=== PATIENT | female | born 2000 | race American Indian/Alaskan Native ===

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

== ENCOUNTER 2021-02-05 15:07 | Outpatient (REF) | payer OTHER, SELFPAY ==
[2021-02-06 10:12] LABS: CT PCR NOT DETECTED (Not Detect.); NG PCR NOT DETECTED (Not Detect.)
[2021-02-06 12:25] LABS: BV Int Neg Control Negative (Negative); BV Int Pos Control Positive (Positive)
== END 2021-02-05 15:08 | disposition home or self-care (01) ==
LOC: HO.LAB 15:07
PROVIDERS: PCP Physician Assistant; Visit Provider Advanced Practice Midwife
DX: N94.6 Dysmenorrhea, unspecified (principal); N92.0 Excessive and frequent menstruation with regular cycle; R10.2 Pelvic and perineal pain; R53.83 Other fatigue; F17.200 Nicotine dependence, unspecified, uncomplicated; J30.89 Other allergic rhinitis; Z91.09 Other allergy status, other than to drugs and biological substances
CPT/HCPCS: 81025; 87480; 87491; 87510; 87591; 87660; 99202

== ENCOUNTER → 2021-02-06 10:59 | Outpatient (BNVA) | payer OTHER, SELFPAY | PROVIDERS: PCP Physician Assistant; Visit Provider Advanced Practice Midwife | DX: Z30.42 Encounter for surveillance of injectable contraceptive (principal) | CPT/HCPCS: 96372; 99211; J1050 ==

== ENCOUNTER → 2021-05-05 10:54 | Outpatient (BNVA) | payer OTHER, SELFPAY | PROVIDERS: PCP Physician Assistant; Visit Provider Advanced Practice Midwife | DX: Z30.42 Encounter for surveillance of injectable contraceptive (principal) | CPT/HCPCS: 96372; 99211 ==

== ENCOUNTER 2021-05-09 14:18 | Outpatient (REF) | payer OTHER, SELFPAY ==
[2021-05-09 15:03] LABS: MANUAL DIFF FLAG NO
[2021-05-09 15:07] LABS: Basophils Percent Auto 0.6 % (0-2); Eosinophils Percent Auto 0.9 % (0-4); Hematocrit 41.4 % (37-47); Hemoglobin 13.8 g/dl (12.0-16.0); Imm Gran Abs Auto 0.01 X10*3/uL (0.00-0.03); Imm Gran Pct Auto 0.2 % (0.0-0.4); Lymphocytes Absolute Auto 1.4 X10*3/uL (1.2-4.9); Lymphocytes Percent Auto 30.9 % (20-40); Mean Corpuscular HGB Conc 33.3 g/dl (31.0-35.0); Mean Corpuscular Hemoglobin 30.9 pg (27.0-33.0); Mean Corpuscular Volume 92.6 fL (80-98); Mean Platelet Volume 10.5 fL (9.4-12.3); Monocytes Absolute Auto 0.4 X10*3/uL (0.1-1.2); Monocytes Percent Auto 8.9 % (2-11); Neutrophils Absolute Auto 2.7 X10*3/uL (2.0-8.3); Neutrophils Percent Auto 58.5 % (45-73); Platelet Count 181 X10*3/uL (160-400); Red Blood Count 4.47 X10*6/uL (4.20-5.50); Red Cell Distribution Width 12.2 % (11.0-16.0); White Blood Count 4.6 X10*3/uL (4.8-10.8)
[2021-05-09 15:34] LABS: Anion Gap 14 (12-20); Calcium 9.3 mg/dL (8.4-10.2); Carbon Dioxide 22 mmol/L (22-29); Chloride 108 mmol/L (96-108); Potassium 4.2 mmol/L (3.3-5.1); Sodium 140 mmol/L (135-145)
[2021-05-09 15:38] LABS: Blood Urea Nitrogen 11 mg/dL (9-16); C Reactive Protein < 0.02 mg/dL (< or = 0.50); Estimated Glomerular Filt Rate > 60; Glucose Random 73 mg/dL (60-115)
[2021-05-09 15:40] LABS: Thyroid Stimulating Hormone 0.88 uIU/mL (0.32-4.0)
[2021-05-09 16:12] LABS: Erythrocyte Sedimentation Rate 2 MM/HR (0-20)
== END 2021-05-09 14:19 | disposition home or self-care (01) ==
LOC: HO.LAB 14:18
PROVIDERS: PCP Physician Assistant; Visit Provider Physician Assistant
DX: R53.83 Other fatigue (principal)
CPT/HCPCS: 36415; 80048; 84443; 85025; 85652; 86140

== ENCOUNTER 2021-09-15 14:48 | Outpatient (REF) | payer OTHER, SELFPAY ==
--- NOTE | ~2021-09-15 | MR_ITS ---
EXAMINATION: MR KNEE WITHOUT CONTRAST, RIGHT CLINICAL INFORMATION: Rupture of ACL COMPARISON: MRI of the right knee April 2019, x-ray right knee December 2018, MRI of the right knee October 2018 TECHNIQUE: MRI of the knee without contrast was performed using routine sequences on a high-field scanner. FINDINGS: MENISCI: Medial Meniscus: Intact Lateral Meniscus: Intact LIGAMENTS: ACL: Postop changes related to ACL reconstruction. There is absence of the intra-articular portion of the reconstructed ligament indicative of a tear which appears chronic. It appears this tear has progressed compared with the prior MRI in 2019. PCL: Intact. Collateral: Intact EXTENSOR MECHANISM: Intact ARTICULAR CARTILAGE/BONE: Patellofemoral Compartment: Normal Medial Compartment: There is subchondral marrow edema along the posterior rim of the medial plateau compatible with bone contusion. Lateral Compartment: There is subchondral bone marrow edema along the posterior rim of the lateral plateau compatible with bone contusion. 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 This tear has progressed compared to the prior examination in 2019 where there may have been some fibers still intact. Bone contusions of the medial and lateral tibial plateau.
== END 2021-09-15 14:49 | disposition home or self-care (01) ==
LOC: HO.MRI 14:48
PROVIDERS: PCP Physician Assistant; Visit Provider Family Medicine Sports Medicine
DX: S83.512D Sprain of anterior cruciate ligament of left knee, subsequent encounter (principal)
CPT/HCPCS: 73721

== ENCOUNTER 2022-08-02 23:43 | Emergency (ER) | payer OTHER, SELFPAY ==
--- NOTE | ~2022-08-02 | XR_ITS ---
EXAMINATION: XR HAND, RIGHT CLINICAL INFORMATION: Right hand pain COMPARISON: None TECHNIQUE: PA, lateral, and oblique views of the right hand. FINDINGS: No fracture or dislocation. Alignment maintained. Joint spaces are maintained. The soft tissues appear unremarkable. XR/XR hand RT 2V IMPRESSION: Normal right hand.
[2022-08-03 00:26] VITALS: BP 109/61; PULSE 65; RESP 16; TEMP 36.6; O2SAT 100; BMI 18.6
== END 2022-08-03 04:58 | disposition left against medical advice (07) ==
PROVIDERS: Emergency Provider Emergency Medicine; PCP Physician Assistant
DX: S69.91XA Unspecified injury of right wrist, hand and finger(s), initial encounter (principal); W22.09XA Striking against other stationary object, initial encounter; Y93.89 Activity, other specified; Y92.9 Unspecified place or not applicable; Y99.9 Unspecified external cause status
CPT/HCPCS: 73120; 99281; 99283

== ENCOUNTER 2022-09-24 09:52 | Outpatient (REF) | payer OTHER, SELFPAY ==
[2022-09-24 10:33] LABS: Hematocrit 38.7 % (37.0-47.0); Hemoglobin 13.2 g/dl (12.0-16.0); Mean Corpuscular HGB Conc 34.1 g/dl (31.0-35.0); Mean Corpuscular Volume 93.9 fL (80.0-98.0); Mean Platelet Volume 10.5 fL (9.4-12.3); Platelet Count 187 X10*3/uL (160-400); Red Blood Count 4.12 X10*6/uL (4.20-5.50); Red Cell Distribution Width 12.1 % (11.0-16.0); White Blood Count 5.1 X10*3/uL (4.8-10.8)
[2022-09-24 11:31] LABS: Alanine Aminotransferase 13 U/L (0-31); Albumin Level 4.2 g/dL (3.5-5.0); Alkaline Phosphatase 78 U/L (39-117); Anion Gap 11 (12-20); Aspartate Amino Transferase 15 U/L (5-31); Bilirubin Total 0.5 mg/dL (0.0-1.0); Blood Urea Nitrogen 12 mg/dL (9-16); Calcium 8.9 mg/dL (8.4-10.2); Carbon Dioxide 25 mmol/L (22-29); Chloride 106 mmol/L (96-108); Estimated Glomerular Filt Rate > 60; Glucose Fasting 86 mg/dL (60-99); Sodium 138 mmol/L (135-145); TSH reflex Free T4 1.62 uIU/mL (0.32-4.0); Total Protein 6.8 g/dL (6.5-8.0)
== END 2022-09-24 09:53 | disposition home or self-care (01) ==
LOC: HO.LAB 09:52
PROVIDERS: PCP Physician Assistant; Visit Provider Physician Assistant
DX: Z13.29 Encounter for screening for other suspected endocrine disorder (principal); N93.9 Abnormal uterine and vaginal bleeding, unspecified
CPT/HCPCS: 36415; 80053; 84443; 85027; 99212

== ENCOUNTER 2022-09-24 11:17 | Outpatient (REF) | payer OTHER, SELFPAY ==
[2022-09-24 15:04] LABS: CT PCR NOT DETECTED (Not Detect.)
[2022-09-24 15:05] LABS: NG PCR NOT DETECTED (Not Detect.)
[2022-09-25 12:37] LABS: BV Int Neg Control Negative (Negative); BV Int Pos Control Positive (Positive)
== END 2022-09-24 11:18 | disposition home or self-care (01) ==
LOC: HO.LNP 11:17
PROVIDERS: Visit Provider Advanced Practice Midwife
DX: Z11.3 Encounter for screening for infections with a predominantly sexual mode of transmission (principal); N92.0 Excessive and frequent menstruation with regular cycle
CPT/HCPCS: 87480; 87491; 87510; 87591; 87660

== ENCOUNTER → 2022-10-07 12:36 | Outpatient (BNVA) | payer OTHER, SELFPAY | PROVIDERS: PCP Physician Assistant; Visit Provider Dietitian, Registered | DX: R63.6 Underweight (principal); Z68.20 Body mass index [BMI] 20.0-20.9, adult; Z71.3 Dietary counseling and surveillance | CPT/HCPCS: 97802 ==

== ENCOUNTER 2022-10-09 14:13 | Outpatient (REF) | payer OTHER, SELFPAY ==
--- NOTE | ~2022-10-09 | US_ITS ---
EXAMINATION: US PELVIS CLINICAL INFORMATION: Abnormal uterine bleeding and vaginal bleeding. Last menstrual period 09/26/2022. COMPARISON: None TECHNIQUE: Ultrasound of the pelvis is performed using both transabdominal and transvaginal transducers along with Doppler. Transvaginal imaging is performed due to inadequate visualization transabdominally. FINDINGS: The uterus measures 8.2 x 3.6 x 4.8 cm and is anteverted. No discrete fibroid identified. Endometrial thickness is 0.5 cm. No significant free fluid. Left ovary measures 3.0 x 1.6 x 2.0 cm, volume 4.9 mL. Multiple left ovarian follicles are identified. Right ovary measures 6.3 x 3.9 x 6.0 cm, volume 76.7 mL. Right ovarian 4.9 x 3.2 x 4.4 cm cyst appears simple. US/US pelvic and transvaginal IMPRESSION: 1. Right ovarian 4.9 cm cyst is probably benign. Recommend follow-up ultrasound in 3-6 months. 2. Multiple left ovarian small follicles. 3. Endometrial thickness is 0.5 cm. 4. No discrete fibroids. 5. No significant free fluid.
== END 2022-10-09 14:14 | disposition home or self-care (01) ==
LOC: HO.HMGCX 14:13
PROVIDERS: PCP Physician Assistant; Visit Provider Advanced Practice Midwife
DX: N93.9 Abnormal uterine and vaginal bleeding, unspecified (principal)
CPT/HCPCS: 76830; 76856

== ENCOUNTER → 2022-10-15 08:01 | Outpatient (BNVA) | payer OTHER, SELFPAY | PROVIDERS: PCP Physician Assistant; Visit Provider Advanced Practice Midwife | DX: Z71.2 Person consulting for explanation of examination or test findings (principal); N92.6 Irregular menstruation, unspecified; N92.0 Excessive and frequent menstruation with regular cycle; R10.2 Pelvic and perineal pain | CPT/HCPCS: 99212 ==

== ENCOUNTER → 2022-10-16 11:09 | Outpatient (BNVA) | payer OTHER, SELFPAY | PROVIDERS: PCP Physician Assistant; Visit Provider Advanced Practice Midwife | DX: Z30.42 Encounter for surveillance of injectable contraceptive (principal) | CPT/HCPCS: 96372; 99211 ==

== ENCOUNTER 2022-10-31 17:38 | Emergency (ER) | payer OTHER, SELFPAY ==
--- NOTE | ~2022-10-31 | CT_ITS ---
EXAMINATION: CT ABDOMEN AND PELVIS WITHOUT CONTRAST CLINICAL INFORMATION: Abdominal pain COMPARISON: Pelvic ultrasound 10/09/2022 TECHNIQUE: Multidetector volumetric imaging was performed from the superior aspect of the liver through the pubic symphysis. Sagittal and coronal reformatted images were obtained on the technologist's workstation. This CT examination was performed using dose optimization techniques as appropriate, variously including the following: *Automated exposure control *Adjustment of mA and/or kV according to patient size (this includes techniques or standardized protocols for targeted exams where dose is matched to indication/reason for exam; i.e. extremities or head) *Use of iterative reconstruction technique DLP: 1942 mGy-cm FINDINGS: LUNG BASES: Unremarkable. ABDOMINAL AND PELVIC WALL: Unremarkable. LIVER AND BILIARY TREE: Unremarkable. GALLBLADDER: Unremarkable. PANCREAS: Unremarkable. SPLEEN: Unremarkable. ADRENAL GLANDS: Unremarkable. KIDNEYS AND URETERS: Unremarkable. GASTROINTESTINAL TRACT: Colonic diverticulosis without evidence of diverticulitis. The appendix is not definitively identified however there are no secondary findings to suggest appendicitis. VASCULAR: Unremarkable. LYMPH NODES/PERITONEUM: No lymphadenopathy. FREE FLUID: None. BLADDER: Unremarkable. PELVIC VISCERA: A 3.7 cm right ovarian cyst, better evaluated on recent pelvic ultrasound previously measuring 4.9 cm, decreased in size. OSSEOUS STRUCTURES: Unremarkable. CT/CT abdomen pelvis wo IV con IMPRESSION: No acute findings to explain symptoms of abdominal pain. A 3.7 cm simple appearing right ovarian cyst, better evaluated on recent pelvic ultrasound is slightly decreased in size.
[2022-10-31 17:45] VITALS: BP 108/80; PULSE 81; RESP 20; TEMP 36.9; O2SAT 100; BMI 17.9
--- NOTE | 2022-10-31 17:45 | ED_ITS ---
HPI - General Adult General Chief complaint: Abdominal Pain Stated complaint: Ovary cyst pain Time Seen by Provider: 10/31/22 19:18 Source: patient and family (mother) Mode of arrival: ambulatory Limitations: no limitations History of Present Illness HPI narrative: Patient is a 21 year old assigned female at with a history of ovarian cysts presenting to the emergency department today with abdominal pain. Patient states that over the last few hours she has had worsening abdominal pain. Patient denies any dizziness, lightheadedness, nausea, vomiting, fever, chills, blurry vision, double vision, loss of vision, chest pain, difficulty breathing, shortness of breath, back pain, night sweats, pain with urination, increased urinary frequency, increased urinary urgency, blood in her urine or stool, syncope or a near syncopal episode, recent trauma or falls, bowel incontinence, bladder incontinence, bowel retention, bladder retention, or any other complaints at this time. Onset (ago): hour(s) Location: abdomen Radiation: non-radiation Severity: mild Severity scale (1-10): 3 Quality: aching and dull Pain Consistency: constant Relieving factors: none Exacerbating factors: none Associated symptoms: denies other symptoms Treatments prior to arrival: none Related Data Home Medications Medication Instructions Recorded Confirmed cetirizine 10 mg tablet 10 mg PO DAILY 02/05/21 09/23/22 fluticasone propionate 50 1 spray intranasal DAILY 02/05/21 09/23/22 mcg/actuation nasal spray,suspension budesonide 180 mcg/actuation 2 inh inhalation BID 09/17/21 09/23/22 breath activated powder inhaler (Pulmicort Flexhaler) Previous Rx's Medication Instructions Recorded albuterol sulfate 90 mcg/actuation 2 puff inhalation Q4-6H PRN 02/10/21 aerosol inhaler shortness of breath or wheezing #8.5 grams hydroxyzine HCl 10 mg tablet 10 mg PO BEDTIME 30 days #30 tabs 08/20/22 sertraline 25 mg tablet (Zoloft) 25 mg PO DAILY #30 tabs 10/07/22 medroxyprogesterone 150 mg/mL 150 mg IM [id number] #1 mL 10/16/22 intramuscular suspension (Depo-Provera) Allergies Allergy/AdvReac Type Severity Reaction Status Date / Time DUST Allergy Mild Sneezing Uncoded 10/15/22 08:10 seasonal Allergy Unknown Unknown Uncoded 10/15/22 08:10 Review of Systems Constitutional: Constitutional: Reports no additional constitutional complaints, Denies chills, Denies fever(s) and Denies night sweats Eyes: Eyes: Reports no additional eye complaints, Denies blurry vision, Denies change in vision, Denies diplopia, Denies eye discharge, Denies loss of vision and Denies eye pain ENT: Denies dizziness Cardiovascular: Cardiovascular: Reports no additional cardiovascular complaints, Denies chest pain, Denies lightheadedness, Denies Loss of Consciousness and Denies dyspnea Respiratory: Respiratory: Reports no additional respiratory complaints and Denies dyspnea Gastrointestinal: Gastrointestinal: Reports no additional gastrointestinal complaints, Reports abdominal pain, Denies melena, Denies hematochezia, Denies change in bowel habits and Denies change in stool character Genitourinary: Genitourinary: Denies hematuria, Denies urinary frequency, Denies dysuria, Denies urinary incontinence, Denies urinary hesitancy and Denies urinary urgency Musculoskeletal: Musculoskeletal: Reports no additional musculoskeletal complaints, Denies numbness and Denies tingling Neurologic: Denies dizziness, Denies loss of vision, Denies numbness and Denies tingling Psychiatric: Psychiatric: Reports no additional psychiatric complaints Endocrine: Endocrine: Reports no additional endocrine complaints Hematologic/Lymphatic: Hematologic/Lymphatic: Reports no additional hematologic/lymphatic complaints Allergic/Immunologic: Allergic/Immunologic: Reports no additional allergic/immunologic complaints PMFSH Past Medical History Attestation statement: The following information was validated with the patient. (all information validated by the patient's mother) Source: old records reviewed, obtained from family (patient's mother) and nursing notes reviewed Medical History Right ACL tear Family History Family History Family/Other Breast cancer Family/Other Breast cancer Social History Social History Housing: House Alcohol intake: current Alcohol intake frequency: holidays/special occasions only Tobacco use type: Cigarette and Smokeless Tobacco e-Cigarette/Vaping Use: Never Used Second Hand Smoke Exposure: No Substance Use Type: Marijuana Advance Directives: No Advance Directives Information Provided: No Current occupational status: employed and student 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 Sexual orientation: Lesbian/[place]/Homosexual Cognitive needs: No Hearing needs: No Vision needs: No Physical Exam ED Vital Signs: Vital Signs - 24 hr 10/31/22 17:45 Temperature 98.5 F Pulse Rate 81 Respiratory Rate 20 Blood Pressure 108/80 Pulse Oximetry 100 Oxygen Delivery Method Room Air BMI result Body Mass Index 17.9 Const General: cooperative, no acute distress, alert and awake Nutritional Appearance: well nourished Orientation/consciousness: patient oriented x3 Limitations: no limitations HENMT Head: Yes normal to inspection and Yes atraumatic Ears: hearing grossly normal bilaterally and external ears normal General nose exam: Normal external nose present, no nasal discharge noted and no epistaxis Face and sinus: Yes normal facial exam, No abrasion and No laceration Mouth: Normal oral and palatal mucosa present, no drooling and no muffled voice Eyes General: appearance normal, both eyes and all related structures Periorbital: periorbital findings normal Eyelids: Yes eyelids normal Conjunctivae: conjunctivae normal Pupils: Equal, round and reactive pupils present EOM: EOMs intact bilaterally Neck Neck: Yes normal visual inspection, Yes full ROM and Yes no lymphadenopathy Chest Chest palpation & inspection: normal inspection of the chest Resp Effort & Inspection: normal respiratory effort and able to speak in complete sentences GI Inspection: Yes normal to inspection Neuro General: patient oriented x3 and moves all extremities Cranial nerves: Yes Equal, round and reactive pupils present Cognition (Neuro): normal cognition Motor exam (neuro): 5/5 motor strength present throughout Sensory Exam: Normal double simultaneous stimulation for sensation Coordination: [id number] test normal Extrem General: Yes normal to inspection, Yes full ROM and Yes capillary refill normal Psych Appearance: grossly normal Mental Status: mental status grossly normal Affect: normal affect Attitude: cooperative Thought process: Normal thought process present Thought content: Normal thought content present Insight: Good insight present (Psych) Course Course Course Narrative: RME performed by Sylvia Mcgowan PA-C. Patient is a 21 year old female presenting to the emergency department with right sided abdominal pain. Patient states that she has a history of ovarian cysts and this feels worse than that. Labs and UA ordered. Medications Administered Discontinued Medications Generic Name Dose Route Start Last Admin Trade Name Freq PRN Reason Stop Dose Admin Ketorolac Tromethamine 15 mg 10/31/22 19:53 10/31/22 20:16 Ketorolac Tromethamine 15 Mg/Ml Vial IM 10/31/22 19:54 15 mg ONCE ONE Administration Medical Decision Making Medical Decision Making [facility] Narrative: Patient is a 21 year old assigned female at with a history of ovarian cysts presenting to the emergency department today with abdominal pain. Patient' s physical exam was unremarkable. Patient's blood work was unremarkable. Patient's urine showed no acute process. Patient's abdominal CT showed no acute process. I explained my physical exam findings as well as all test results to the patient and the patient's mother. I answered all questions asked by the patient and the patient's mother. Patient received IM Toradol which she stated helped her pain significantly. I stressed the importance of the patient taking her medication as prescribed. I stressed the importance of the patient following up with her primary care provider. I stressed the importance of the patient returning to the emergency department immediately if her symptoms were to worsen or if she were to develop any dizziness, shortness of breath, difficulty breathing, chest pain, blurry vision, loss of vision, nausea, vomiting, abdominal pain, fever, chills, back pain, or any other complaints. Patient and the patient's mother verbalized agreement and understanding with this treatment plan and discharge. Differential Diagnosis Differential Diagnoses: The differential diagnosis associated with the presentation includes abdominal pain, constipation Lab Data [facility] Lab Attestation statement: I reviewed the patient's lab results. 10/31/22 18:39 10/31/22 18:39 Labs: Lab Results 10/31/22 10/31/22 10/31/22 Range/Units 18:39 18:39 18:39 WBC 5.8 (4.8-10.8) X10*3/uL RBC 4.32 (4.20-5.50) X10*6/uL Hgb 13.6 (12.0-16.0) g/dl Hct 39.7 (37.0-47.0) % MCV 91.9 (80.0-98.0) fL MCH 31.5 (27.0-33.0) pg MCHC 34.3 (31.0-35.0) g/dl RDW 12.3 (11.0-16.0) % Plt Count 186 (160-400) X10*3/uL MPV 9.8 (9.4-12.3) fL Immature Gran % (Auto) 0.3 (0.0-0.4) % Neut % (Auto) 62.9 (45-73) % Lymph % (Auto) 29.3 (20-40) % Stephenson % (Auto) 7.0 (2-11) % Eos % (Auto) 0.2 (0-4) % Baso % (Auto) 0.3 (0-2) % Lymph # (Auto) 1.7 (1.2-4.9) X10*3/uL Stephenson # (Auto) 0.4 (0.1-1.2) X10*3/uL Eos # (Auto) 0.0 (0.0-0.4) X10*3/uL Baso # (Auto) 0.0 (0.0-0.2) X10*3/uL Abs Immat Gran (auto) 0.02 (0.00-0.03) X10*3/uL Absolute Neuts (auto) 3.7 (2.0-8.3) x10*3/uL Absolute Nucleated RBC 0.000 (0.0-0.012) X10*3/uL Nucleated RBC % (auto) 0.0 (0.0-0.2) /100WBC ESR 2 (0-20) MM/HR Sodium 140 (135-145) mmol/L Potassium 3.6 (3.3-5.1) mmol/L Chloride 108 (96-108) mmol/L Carbon Dioxide 23 (22-29) mmol/L Anion Gap 13 (12-20) BUN 9 (9-16) mg/dL Creatinine 0.83 (0.5-1.4) mg/dL Estim Creat Clear Calc 96.7 Estimated GFR > 60 Random Glucose 95 (60-115) mg/dL Calcium 9.2 (8.4-10.2) mg/dL Magnesium 2.2 (1.6-2.6) mg/dL Total Bilirubin 0.7 (0.0-1.0) mg/dL AST 31 (5-31) U/L ALT 19 (0-31) U/L Alkaline Phosphatase 71 (39-117) U/L C-Reactive Protein < 0.04 (< or = 0.50) mg/dL Total Protein 7.2 (6.5-8.0) g/dL Albumin 4.4 (3.5-5.0) g/dL Beta HCG, Quant < 2 mIU/mL Urine Color Urine Appearance Urine pH (5.0-9.0) Ur Specific Tulia (1.005-1.025) Urine Protein (Neg-Trace) mg/dL Urine Glucose (UA) (Negative) mg/dL Urine Ketones (Negative) mg/dL Urine Blood (Negative) Urine Nitrite (Negative) Ur Leukocyte Esterase (Negative) Urine RBC (0-2) /HPF Urine WBC (0-5) /HPF Ur Squamous Epith Cells (0-2) /HPF Urine Bacteria (None Seen) Hyaline Casts (0-2) /LPF COVID-19 (INDIGO) (Negative) COVID-19 Clin Com 10/31/22 10/31/22 Range/Units 18:39 18:39 WBC (4.8-10.8) X10*3/uL RBC (4.20-5.50) X10*6/uL Hgb (12.0-16.0) g/dl Hct (37.0-47.0) % MCV (80.0-98.0) fL MCH (27.0-33.0) pg MCHC (31.0-35.0) g/dl RDW (11.0-16.0) % Plt Count (160-400) X10*3/uL MPV (9.4-12.3) fL Immature Gran % (Auto) (0.0-0.4) % Neut % (Auto) (45-73) % Lymph % (Auto) (20-40) % Stephenson % (Auto) (2-11) % Eos % (Auto) (0-4) % Baso % (Auto) (0-2) % Lymph # (Auto) (1.2-4.9) X10*3/uL Stephenson # (Auto) (0.1-1.2) X10*3/uL Eos # (Auto) (0.0-0.4) X10*3/uL Baso # (Auto) (0.0-0.2) X10*3/uL Abs Immat Gran (auto) (0.00-0.03) X10*3/uL Absolute Neuts (auto) (2.0-8.3) x10*3/uL Absolute Nucleated RBC (0.0-0.012) X10*3/uL Nucleated RBC % (auto) (0.0-0.2) /100WBC ESR (0-20) MM/HR Sodium (135-145) mmol/L Potassium (3.3-5.1) mmol/L Chloride (96-108) mmol/L Carbon Dioxide (22-29) mmol/L Anion Gap (12-20) BUN (9-16) mg/dL Creatinine (0.5-1.4) mg/dL Estim Creat Clear Calc Estimated GFR Random Glucose (60-115) mg/dL Calcium (8.4-10.2) mg/dL Magnesium (1.6-2.6) mg/dL Total Bilirubin (0.0-1.0) mg/dL AST (5-31) U/L ALT (0-31) U/L Alkaline Phosphatase (39-117) U/L C-Reactive Protein (< or = 0.50) mg/dL Total Protein (6.5-8.0) g/dL Albumin (3.5-5.0) g/dL Beta HCG, Quant mIU/mL Urine Color Yellow Urine Appearance Cloudy Urine pH 7.5 (5.0-9.0) Ur Specific [place] 1.025 (1.005-1.025) Urine Protein 30 (1+) H (Neg-Trace) mg/dL Urine Glucose (UA) Negative (Negative) mg/dL Urine Ketones Trace (Negative) mg/dL Urine Blood Negative (Negative) Urine Nitrite Negative (Negative) Ur Leukocyte Esterase Negative (Negative) Urine RBC 0-2 (0-2) /HPF Urine WBC 0-5 (0-5) /HPF Ur Squamous Epith Cells 0-2 (0-2) /HPF Urine Bacteria None Seen (None Seen) Hyaline Casts 0-2 (0-2) /LPF COVID-19 (INDIGO) Negative (Negative) COVID-19 Clin Com See Note Radiology Impression Radiologist Impression: My interpretation is in agreement with the radiologist's impression of this imaging study. EXAMINATION: CT ABDOMEN AND PELVIS WITHOUT CONTRAST? CLINICAL INFORMATION: Abdominal pain? COMPARISON: Pelvic ultrasound 10/09/2022? TECHNIQUE: Multidetector volumetric imaging was performed from the superior aspect of the liver through the pubic symphysis. Sagittal and coronal reformatted images were obtained on the technologist's workstation.? This CT examination was performed using dose optimization techniques as appropriate, variously including the following: *Automated exposure control *Adjustment of mA and/or kV according to patient size (this includes techniques or standardized protocols for targeted exams where dose is matched to indication/reason for exam; i.e. extremities or head) *Use of iterative reconstruction technique DLP: 1942 mGy-cm FINDINGS: LUNG BASES: Unremarkable.? ABDOMINAL AND PELVIC WALL:? Unremarkable.? LIVER AND BILIARY TREE: Unremarkable.? GALLBLADDER: Unremarkable.? PANCREAS: Unremarkable.? SPLEEN: Unremarkable.? ADRENAL GLANDS: Unremarkable.? KIDNEYS AND URETERS: Unremarkable.? GASTROINTESTINAL TRACT: Colonic diverticulosis without evidence of diverticulitis.? The appendix is not definitively identified however there are no secondary findings to suggest appendicitis. VASCULAR: Unremarkable. LYMPH NODES/PERITONEUM: No lymphadenopathy. FREE FLUID: None. BLADDER: Unremarkable.? PELVIC VISCERA: A 3.7 cm right ovarian cyst, better evaluated on recent pelvic ultrasound previously measuring 4.9 cm, decreased in size. OSSEOUS STRUCTURES: Unremarkable.? CT/CT abdomen pelvis wo IV con IMPRESSION: ? No acute findings to explain symptoms of abdominal pain. ? A 3.7 cm simple appearing right ovarian cyst, better evaluated on recent pelvic ultrasound is slightly decreased in size. Dictated By: Breanne Bosch MD Signed By: Electronically signed by Breanne Bosch MD 10/31/222034 Independent Historian Clinical information obtained from an independent historian. History obtained from or confirmed by: Parent (mother) Discharge Plan Discharge Clinical Impression: Constipation Patient Disposition: Home, Self-Care Instructions: Constipation (ED) Additional Instructions: Follow up with your primary care provider. Return to the emergency department immediately if your symptoms worsen or if you develop any dizziness, shortness of breath, difficulty breathing, chest pain, blurry vision, loss of vision, nausea, vomiting, abdominal pain, fever, chills, back pain, or any other complaints. Prescriptions: No Action hydroxyzine HCl 10 mg tablet 10 mg PO BEDTIME 30 Days Qty: 30 1RF sertraline [Zoloft] 25 mg tablet 25 mg PO DAILY Qty: 30 3RF medroxyprogesterone [Depo-Provera] 150 mg/mL suspension 150 mg IM [id number] Qty: 1 4RF albuterol sulfate 90 mcg/actuation HFA aerosol inhaler 2 puff inhalation Q4-6H PRN (Reason: shortness of breath or wheezing) Qty: 8.5 0RF Pulmicort Flexhaler 180 mcg/actuation aerosol powdr breath activated 2 inh inhalation BID fluticasone propionate 50 mcg/actuation spray,suspension 1 spray intranasal DAILY cetirizine 10 mg tablet 10 mg PO DAILY Referrals: Hever Hernandez PA-C [Primary Care Provider] - Print Language: Romansh
[2022-10-31 18:47] LABS: MANUAL DIFF FLAG NO
[2022-10-31 18:48] LABS: Appearance Urine Cloudy; Basophils Percent Auto 0.3 % (0-2); Color Urine Yellow; Eosinophils Percent Auto 0.2 % (0-4); Glucose Urine UA Negative (Negative); Hematocrit 39.7 % (37.0-47.0); Hemoglobin 13.6 g/dl (12.0-16.0); Imm Gran Abs Auto 0.02 X10*3/uL (0.00-0.03); Imm Gran Pct Auto 0.3 % (0.0-0.4); Leukocyte Esterase Urine Negative (Negative); Lymphocytes Absolute Auto 1.7 X10*3/uL (1.2-4.9); Lymphocytes Percent Auto 29.3 % (20-40); Mean Corpuscular HGB Conc 34.3 g/dl (31.0-35.0); Mean Corpuscular Hemoglobin 31.5 pg (27.0-33.0); Mean Corpuscular Volume 91.9 fL (80.0-98.0); Mean Platelet Volume 9.8 fL (9.4-12.3); Monocytes Absolute Auto 0.4 X10*3/uL (0.1-1.2); Neutrophils Absolute Auto 3.7 x10*3/uL (2.0-8.3); Neutrophils Percent Auto 62.9 % (45-73); Nitrite Urine Negative (Negative); PH 7.5 (5.0-9.0); Platelet Count 186 X10*3/uL (160-400); Red Blood Count 4.32 X10*6/uL (4.20-5.50); Red Cell Distribution Width 12.3 % (11.0-16.0); Specific Gravity - Urine 1.025 (1.005-1.025); UMIC TRIGGER UACC YES; Urine Blood Negative (Negative); Urine Ketones Trace mg/dL (Negative); Urine Protein 30 (1+) mg/dL (Neg-Trace); White Blood Count 5.8 X10*3/uL (4.8-10.8)
[2022-10-31 18:53] LABS: Bacteria Urine None Seen (None Seen); Hyaline Casts Urine 0-2 /LPF (0-2); RBC Urine 0-2 /HPF (0-2); Squamous Epithelial Cell Urine 0-2 /HPF (0-2); WBC Urine 0-5 /HPF (0-5)
[2022-10-31 19:01] LABS: COVID-19 Test Negative (Negative); IDNOW Serial# 6674DD1D
[2022-10-31 19:18] LABS: Alanine Aminotransferase 19 U/L (0-31); Albumin Level 4.4 g/dL (3.5-5.0); Alkaline Phosphatase 71 U/L (39-117); Anion Gap 13 (12-20); Aspartate Amino Transferase 31 U/L (5-31); Bilirubin Total 0.7 mg/dL (0.0-1.0); Blood Urea Nitrogen 9 mg/dL (9-16); C Reactive Protein < 0.04 mg/dL (< or = 0.50); Calcium 9.2 mg/dL (8.4-10.2); Carbon Dioxide 23 mmol/L (22-29); Chloride 108 mmol/L (96-108); Creatinine Clr Calc Pharmacy 96.7; Estimated Glomerular Filt Rate > 60; Glucose Random 95 mg/dL (60-115); HCG Quantitative < 2 mIU/mL; Magnesium 2.2 mg/dL (1.6-2.6); Potassium 3.6 mmol/L (3.3-5.1); Sodium 140 mmol/L (135-145); Total Protein 7.2 g/dL (6.5-8.0)
[2022-10-31 19:22] LABS: Erythrocyte Sedimentation Rate 2 MM/HR (0-20)
[2022-10-31] MEDS: Ketorolac Tromethamine 15 MG/ML VIAL IM (20:16)
== END 2022-10-31 21:06 | disposition home or self-care (01) ==
PROVIDERS: Physician Assistant Medical; Emergency Provider Internal Medicine; PCP Physician Assistant
DX: K59.00 Constipation, unspecified (principal); R10.9 Unspecified abdominal pain; Z20.822 Contact with and (suspected) exposure to COVID-19
CPT/HCPCS: 36415; 74176; 80053; 81001; 83735; 84702; 85025; 85652; 86140; 87635; 96372; 99283; 99284; J1885

== ENCOUNTER → 2022-12-29 12:20 | Outpatient (BNVA) | payer OTHER, SELFPAY | PROVIDERS: PCP Physician Assistant; Visit Provider Dietitian, Registered | DX: R63.6 Underweight (principal) | CPT/HCPCS: 97803 ==

== ENCOUNTER 2023-01-14 12:42 | Outpatient (REF) | payer OTHER, SELFPAY ==
--- NOTE | ~2023-01-14 | US_ITS ---
EXAMINATION: US PELVIS CLINICAL INFORMATION: Ovarian cyst. COMPARISON: Pelvic ultrasound 10/09/2022. TECHNIQUE: Ultrasound of the pelvis is performed using both transabdominal and transvaginal transducers along with Doppler. Transvaginal imaging is performed due to inadequate visualization transabdominally. FINDINGS: Uterus: The uterus is anteverted and retroflexed and measures 9.1 x 4.4 x 4.7 cm. The double wall endometrial thickness is 5 mm. The uterus is smooth in contour and has normal myometrial echogenicity. No visible fibroid. Adnexa: Both ovaries are visualized. There is normal color flow to the adnexa. There is no ovarian torsion. There is no pelvic ascites or fluid collection. Right ovary measures 3.5 x 2.8 x 2.5 cm. Volume 12.8 mL. The previously seen 4.9 cm cyst has resolved. There is a dominant follicle. Left ovary measures 2.5 x 2.0 x 2.3 cm. Volume 6.0 mL. There is trace free fluid in the pelvis. US/US pelvic and transvaginal IMPRESSION: Resolution of right ovarian cyst.
== END 2023-01-14 12:43 | disposition home or self-care (01) ==
LOC: HO.US 12:42
PROVIDERS: PCP Physician Assistant; Visit Provider Advanced Practice Midwife
DX: N83.201 Unspecified ovarian cyst, right side (principal)
CPT/HCPCS: 76830; 76856

== ENCOUNTER → 2023-01-28 08:27 | Outpatient (BNVA) | payer OTHER, SELFPAY | PROVIDERS: PCP Physician Assistant; Visit Provider Advanced Practice Midwife | DX: Z30.09 Encounter for other general counseling and advice on contraception (principal); Z71.2 Person consulting for explanation of examination or test findings | CPT/HCPCS: 99212 ==

== ENCOUNTER 2023-08-12 08:07 | Outpatient (AMB) | payer OTHER, SELFPAY ==
--- NOTE | 2023-08-12 08:08 | MHC.OFFVIS ---
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 She is eating well and performs exercises every day. Her last STI screening was in 09/2022. STI screening offered today. She declined HIV testing. She has regular menstrual cycle. She denies vaginal itching and irritation. Denies family history of breast, ovarian or colon cancer. She has a scheduled appointment for US of pelvis and transvaginal today. [facility] Medical History Asthma MDD (major depressive disorder), recurrent episode, moderate Right ACL tear Surgical History History of repair of ACL Family History (Updated 08/12/23 @ 08:35 by Nia Lanier CNM) Family/Other Breast cancer Family/Other Breast cancer Mother Diabetes Maternal Grandfather HTN (hypertension) Social History (Updated 08/12/23 @ 08:37 by Nia Lanier CNM) Housing: House Alcohol intake: current Alcohol intake frequency: holidays/special occasions only Tobacco use type: Cigarette and Smokeless Tobacco e-Cigarette/Vaping Use: Never Used Second Hand Smoke Exposure: No Substance Use Type: Marijuana Current occupational status: employed and student 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[employer], 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 Sexual orientation: Lesbian/Sanon/Homosexual Cognitive needs: No Hearing needs: No Vision needs: No Female Reproductive History Menstrual Age of Menarche: 13 Duration of menses: 6-7 days Date of last menstrual period: 08/06/23 control method: none Total pregnancies: 0 Review of Systems Const All systems reviewed & are unremarkable except as noted in HPI and below Reports as per HPI Eyes Reports no additional complaints ENT Reports no additional complaints Card Reports no additional complaints Resp Reports no additional complaints GI Reports no additional complaints Reports as per HPI Musc Reports no additional complaints Skin/Breast Reports as per HPI Neuro Reports no additional complaints Psych Reports no additional complaints Endo Reports no additional complaints Haider/Lymph Reports no additional complaints Aller/Immun Reports no additional complaints Physical Exam Vital Signs: Last Vital Signs BP 102/66 08/12/23 08:09 BMI result Body Mass Index 21.5 Const General: cooperative, healthy appearing, no acute distress, well developed and alert Orientation/consciousness: patient oriented x3 HEENT Head: Yes normal to inspection Eyes General: appearance normal, both eyes and all related structures Neck Neck: Yes normal visual inspection Thyroid: Thyroid normal Chest Chest palpation & inspection: normal inspection of the chest Breast/axilla inspection: normal inspection of the breasts (no puckering, dimpling, peau de orange, retraction, discharge, masses) Breast/axilla palpation: normal palpation of the breasts Resp Effort & Inspection: normal respiratory effort GI Inspection: Yes normal to inspection Palpation (GI): Soft to palpation Rectal Exam - Female: deferred Other: tense w/exam General: Yes bladder normal to palpation External Female Exam: normal external appearance and normal appearance of the urethra Speculum Exam - Vagina: normal appearance of the vagina, normal palpation and normal vaginal discharge Speculum Exam - Cervix: normal appearance of the cervix and normal palpation Bimanual exam- vagina & uterus: normal bimanual exam, normal palpation, uterine size normal, bladder normal to palpation and normal palpation Bimanual Exam- Adnexa, other: normal adnexae, no masses and tender (slightly tender, no guarding) on the left Back/Spine/Pelvis Other: Left side of the pelvis. Skin General skin exam: no rashes or lesions noted Neuro General: patient oriented x3 Cognition (Neuro): normal cognition Extrem General: Yes normal to inspection Psych Attitude: cooperative Thought process: Normal thought process present Assessment & Plan Assessment & Plan (1) Encounter for well woman exam with routine gynecological exam: Code(s): Z01.419 - Encounter for gynecological examination (general) (routine) without abnormal findings Plan: Discussed: Current recommendations for pap smears per ASCCP guidelines. Breast awareness and periodic breast exams. Maintain a healthy lifestyle including a well balanced diet and routine exercise. All of her questions and concerns were addressed to the best of my ability. 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 (2) Pelvic pain: Code(s): R10.2 - Pelvic and perineal pain Plan: Pelvic US scheduled. Will await results and treat accordingly. Instructed to go to ER with any increased pain. Can take Tylenol and use heating pad prn for pain. RTO in 2 weeks for test results. (3) History of ovarian cyst: Code(s): Z87.42 - Personal history of other diseases of the female genital tract Plan: US today. Has follow up appt. booked. Orders: Orders CT NG by PCR Today Z20.2 - Contact with and (suspected) exposure to infections with a predominantly sexual mode of transmission Pap Smear Today Z01.419 - Encounter for gynecological examination (general) (routine) without abnormal findings Coding Level of Care Code Est Pt Prev Care 18-39y(75782) Diagnoses Encounter for well woman exam with routine gynecological exam Z01.419 Pelvic pain R10.2 History of ovarian cyst Z87.42
[2023-08-12 08:09] VITALS: BP 102/66; BMI 21.5
== END 2023-08-12 08:33 | disposition home or self-care (01) ==
PROVIDERS: PCP Physician Assistant; Visit Provider Advanced Practice Midwife
DX: Z01.419 Encounter for gynecological examination (general) (routine) without abnormal findings (principal); R10.2 Pelvic and perineal pain; Z87.42 Personal history of other diseases of the female genital tract
CPT/HCPCS: 99395

== ENCOUNTER 2023-08-12 08:33 | Outpatient (REF) | payer OTHER, SELFPAY | END 2023-08-12 08:34 | disposition home or self-care (01) | LOC: HO.LNP 08:33 | PROVIDERS: Visit Provider Advanced Practice Midwife | DX: Z01.419 Encounter for gynecological examination (general) (routine) without abnormal findings (principal); Z20.2 Contact with and (suspected) exposure to infections with a predominantly sexual mode of transmission | CPT/HCPCS: 88142 ==

== ENCOUNTER 2023-08-12 10:49 | Outpatient (REF) | payer OTHER, SELFPAY ==
--- NOTE | ~2023-08-12 | US_ITS ---
EXAMINATION: US PELVIS COMPLETE CLINICAL INFORMATION: Pelvic pain COMPARISON: Pelvic ultrasound 01/14/2023 TECHNIQUE: Transabdominal and transvaginal imaging was performed. FINDINGS: The uterus is of normal size and echogenicity measuring 7.3 x 3.6 x 5.3 cm. A regular homogeneous endometrium is identified measuring 0.7 cm. The right measures 2.4 x 1.9 x 3.2 cm for a volume of 10.8 mL and is unremarkable in appearance. The left measures 4.8 x 2.9 x 5.6 cm for a volume of 40.8 mL. Left ovary is remarkable for a 4.4 x 2.2 x 4.6 cm cyst with a thin internal septation and some avascular internal debris. There is small simple physiologic volume pelvic free fluid. US/US pelvic and transvaginal IMPRESSION: 1. A 4.6 cm left ovarian cyst with a thin internal septation and some avascular internal debris, possibly reflective of a hemorrhagic cyst however not definitively classic and therefore recommend a follow-up ultrasound in 6-12 weeks to ensure resolution. If findings do not resolve recommend MR with IV contrast or surgical evaluation. 2. Small simple physiologic volume of pelvic free fluid. 3. Unremarkable sonographic appearance of the uterus and right ovary.
[2023-08-12 16:49] LABS: CT PCR NOT DETECTED (Not Detect.); NG PCR NOT DETECTED (Not Detect.)
== END 2023-08-12 10:50 | disposition home or self-care (01) ==
LOC: HO.US 10:49
PROVIDERS: PCP Physician Assistant; Visit Provider Advanced Practice Midwife
DX: R10.2 Pelvic and perineal pain (principal); Z20.2 Contact with and (suspected) exposure to infections with a predominantly sexual mode of transmission
CPT/HCPCS: 0353U; 76830; 76856; 99395

== ENCOUNTER 2023-08-31 09:40 | Outpatient (AMB) | payer OTHER, SELFPAY ==
[2023-08-31 09:42] VITALS: BP 92/60; BMI 21.5
--- NOTE | 2023-08-31 09:42 | A.OFFVIS_ITS ---
Intake Vital Signs 08/31/23 09:42 Height 5 ft 10 in Weight 150 lb BMI 21.5 BP 92/60 Intake Visit Reasons: Ultra sound follow up Allergies DUST Allergy (Mild, Uncoded 08/31/23 09:44) Sneezing seasonal Allergy (Unknown, Uncoded 08/31/23 09:44) Unknown Is last menstrual period known: Yes Last menstrual period: 08/06/23 HPI HPI Comments History of Present Illness Details Patient is here today for her test results. She has a left ovarian today she reports the pain is generally around 7 at its worst uses OTC medication and a heating pad or icy hot to help. She denies any risk to . [facility] Medical History Asthma MDD (major depressive disorder), recurrent episode, moderate Right ACL tear Surgical History History of repair of ACL Family History (Updated 08/12/23 @ 08:35 by Nia Lanier CNM) Family/Other Breast cancer Family/Other Breast cancer Mother Diabetes Maternal Grandfather HTN (hypertension) (Updated 08/12/23 @ 08:37 by Nia Lanier CNM) Housing: House Alcohol intake: current Alcohol intake frequency: holidays/special occasions only Tobacco use type: Cigarette and Smokeless Tobacco e-Cigarette/Vaping Use: Never Used Second Hand Smoke Exposure: No Substance Use Type: Marijuana Current occupational status: employed and student 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 Orientation/consciousness: patient orientated x 3. Results Reviewed Results Reviewed: [address] [address] Ultrasound Report Signed Patient: Zenaida Brown I MR#: [id number] : 2000 Acct:[id number] Age/Sex: 22 / F ADM Date: 08/12/23 Loc: HO.US Attending Dr: Nia Lanier CNM Ordering Physician: Nia Lanier CNM Date of Service: 08/12/23 Procedure(s): US pelvic and transvaginal Accession Number(s): [id number] cc: Hever Hernandez PA-C; Nia Lanier CNM~ EXAMINATION: US PELVIS COMPLETE CLINICAL INFORMATION: Pelvic pain COMPARISON: Pelvic ultrasound 01/14/2023 TECHNIQUE: Transabdominal and transvaginal imaging was performed. FINDINGS: The uterus is of normal size and echogenicity measuring 7.3 x 3.6 x 5.3 cm. A regular homogeneous endometrium is identified measuring 0.7 cm. The right measures 2.4 x 1.9 x 3.2 cm for a volume of 10.8 mL and is unremarkable in appearance. The left measures 4.8 x 2.9 x 5.6 cm for a volume of 40.8 mL. Left ovary is remarkable for a 4.4 x 2.2 x 4.6 cm cyst with a thin internal septation and some avascular internal debris. There is small simple physiologic volume pelvic free fluid. US/US pelvic and transvaginal IMPRESSION: 1. A 4.6 cm left ovarian cyst with a thin internal septation and some avascular internal debris, possibly reflective of a hemorrhagic cyst however not definitively classic and therefore recommend a follow-up ultrasound in 6-12 weeks to ensure resolution. If findings do not resolve recommend MR with IV contrast or surgical evaluation. 2. Small simple physiologic volume of pelvic free fluid. 3. Unremarkable sonographic appearance of the uterus and right ovary. Dictated By: Breanne Bosch MD Assessment & Plan Assessment & Plan (1) Left ovarian cyst: Code(s): N83.202 - Unspecified ovarian cyst, left side Plan: Discussed test results Counseled regarding findings of: left hemorrhagic 4.6 ovarian cyst. Ovarian cyst, which often is benign, and resolves on their own overtime. Warnings: Increased pain, when to seek emergent care in the ED. continue use of [id number] self-help measures. All of her questions and concerns were addressed to the best of my ability and shared decision making. She is agreeable to the plan of care. Plan repeat ultrasound in 6 weeks. Follow-up office visit to discuss test results. Orders: Orders US pelvic and transvaginal 6 Weeks N83.202 - Unspecified ovarian cyst, left side Coding Level of Care Code Est Pt Level 3 (44487) Diagnoses Left ovarian cyst N83.202
== END 2023-08-31 10:13 | disposition home or self-care (01) ==
PROVIDERS: PCP Physician Assistant; Visit Provider Advanced Practice Midwife
DX: N83.202 Unspecified ovarian cyst, left side (principal)
CPT/HCPCS: 99213

== ENCOUNTER → 2023-08-31 09:40 | Outpatient (BNVA) | payer OTHER, SELFPAY | PROVIDERS: PCP Physician Assistant; Visit Provider Advanced Practice Midwife | DX: N83.202 Unspecified ovarian cyst, left side (principal) | CPT/HCPCS: 99212 ==

== ENCOUNTER 2023-10-12 13:56 | Outpatient (REF) | payer OTHER, SELFPAY ==
--- NOTE | ~2023-10-12 | US_ITS ---
EXAMINATION: US PELVIS AND TRANSVAGINAL CLINICAL INFORMATION: Left ovarian cyst, last menstrual period 10/04/2023. Left lower quadrant pain. COMPARISON: Pelvic ultrasound of 08/12/2023. TECHNIQUE: Ultrasound of the pelvis is performed using both transabdominal and transvaginal transducers along with Doppler. Transvaginal imaging is performed due to inadequate visualization transabdominally. FINDINGS: The uterus measures 6.7 x 4.0 x 5.1 cm. No discrete fibroid identified. Small amount of free fluid in the pelvis. Endometrial thickness is 0.8 cm. Endometrium is multilayered. Right ovary measures 3.7 x 2.4 x 1.9 cm, volume 8.8 mL. Left ovary measures 3.6 x 2.2 x 3.0 cm, volume 12.4 mL. Bilateral ovaries demonstrate multiple small follicles. US/US pelvic and transvaginal IMPRESSION: 1. No discrete fibroid. 2. Endometrial thickness is 0.8 cm. 3. Bilateral ovaries demonstrate multiple small follicles. 4. Small amount of free fluid in the pelvis.
== END 2023-10-12 13:57 | disposition home or self-care (01) ==
LOC: HO.US 13:56
PROVIDERS: PCP Physician Assistant; Visit Provider Advanced Practice Midwife
DX: N83.202 Unspecified ovarian cyst, left side (principal)
CPT/HCPCS: 76830; 76856

== ENCOUNTER 2023-10-26 10:31 | Outpatient (AMB) | payer OTHER, SELFPAY ==
--- NOTE | 2023-10-26 10:34 | MHC.OFFVIS ---
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 She does not have any pelvic pain. She reports her periods are regular. She is same sex partner, no concerns for . She denies any vaginal discharge, odors, irritation. [facility] Medical History Asthma MDD (major depressive disorder), recurrent episode, moderate Right ACL tear Surgical History History of repair of ACL Family History (Updated 08/12/23 @ 08:35 by Nia Lanier CNM) Family/Other Breast cancer Family/Other Breast cancer Mother Diabetes Maternal Grandfather HTN (hypertension) Social History (Updated 08/12/23 @ 08:37 by Nia Lanier CNM) Housing: House Alcohol intake: current Alcohol intake frequency: holidays/special occasions only Tobacco use type: Cigarette and Smokeless Tobacco e-Cigarette/Vaping Use: Never Used Second Hand Smoke Exposure: No Substance Use Type: Marijuana Current occupational status: employed and student 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[employer], 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 Sexual orientation: Lesbian/Sanon/Homosexual Cognitive needs: No Hearing needs: No Vision needs: No Female Reproductive History Menstrual Age of Menarche: 13 Date of last menstrual period: 10/04/23 Review of Systems Const All systems reviewed & are unremarkable except as noted in HPI and below Endo Reports no additional complaints Physical Exam Vital Signs: Last Vital Signs BP 92/64 10/26/23 10:35 BMI result Body Mass Index 21.5 Const General: cooperative, healthy appearing and no acute distress Psych Appearance: well kempt Attitude: cooperative Thought process: Normal thought process present Results Reviewed Results Reviewed: [address] [address] Ultrasound Report Signed Patient: Zenaida Brown I MR#: [id number] : 2000 Acct:[id number] Age/Sex: 22 / F ADM Date: 10/12/23 Loc: HO.US Attending Dr: Nia Lanier CNM Ordering Physician: Nia Lanier CNM Date of Service: 10/12/23 Procedure(s): US pelvic and transvaginal Accession Number(s): [id number] cc: Hever Hernandez PA-C; Nia Lanier CNM~ EXAMINATION: US PELVIS AND TRANSVAGINAL CLINICAL INFORMATION: Left ovarian cyst, last menstrual period 10/04/2023. Left lower quadrant pain. COMPARISON: Pelvic ultrasound of 08/12/2023. TECHNIQUE: Ultrasound of the pelvis is performed using both transabdominal and transvaginal transducers along with Doppler. Transvaginal imaging is performed due to inadequate visualization transabdominally. FINDINGS: The uterus measures 6.7 x 4.0 x 5.1 cm. No discrete fibroid identified. Small amount of free fluid in the pelvis. Endometrial thickness is 0.8 cm. Endometrium is multilayered. Right ovary measures 3.7 x 2.4 x 1.9 cm, volume 8.8 mL. Left ovary measures 3.6 x 2.2 x 3.0 cm, volume 12.4 mL. Bilateral ovaries demonstrate multiple small follicles. US/US pelvic and transvaginal IMPRESSION: 1. No discrete fibroid. 2. Endometrial thickness is 0.8 cm. 3. Bilateral ovaries demonstrate multiple small follicles. 4. Small amount of free fluid in the pelvis. Dictated By: Migdalia Schmitt MD Signed By: <Electronically signed by Migdalia Schmitt MD in OV> 10/13/23 1339 DD/ 1419 TD/TT: Merit System Director: Assessment & Plan Assessment & Plan (1) Encounter to discuss test results: Code(s): Z71.2 - Person consulting for explanation of examination or test findings Plan Discussed: Ultrasound findings including bilateral multiple follicles. Resolution of left ovarian cyst. All of her questions and concerns were addressed to the best of my ability. Annual exam as scheduled for August 2024. Advised to call sooner if there is any concerns or pelvic pain. Coding Level of Care Code Est Pt Level 3 (79719) Diagnoses Encounter to discuss test results Z71.2
[2023-10-26 10:35] VITALS: BP 92/64; BMI 21.5
== END 2023-10-26 13:02 | disposition home or self-care (01) ==
LOC: HO.HWS 10:31
PROVIDERS: PCP Physician Assistant; Visit Provider Advanced Practice Midwife
DX: Z71.2 Person consulting for explanation of examination or test findings (principal)
CPT/HCPCS: 99213

== ENCOUNTER → 2023-10-26 10:31 | Outpatient (BNVA) | payer OTHER, SELFPAY | PROVIDERS: PCP Physician Assistant; Visit Provider Advanced Practice Midwife | DX: Z71.2 Person consulting for explanation of examination or test findings (principal); N83.202 Unspecified ovarian cyst, left side | CPT/HCPCS: 99212 ==

== ENCOUNTER 2024-01-11 13:22 | Outpatient (AMB) | payer OTHER, SELFPAY ==
--- NOTE | 2024-01-11 13:28 | MHC.PC.OV ---
Vital Signs 01/11/24 13:34 Height 5 ft 10 in Weight 145 lb 4 oz BMI 20.8 BP 98/64 Blood Pressure Location Lt brachial Position Sitting Pulse 76 Pulse Source Pulse Oximeter Pulse Oximetry (%) 97 Oxygen Delivery Method Room Air Intake Visit Reasons: pe Intake Note: Patient is here today for a physical. Cyanide Case Hardener Required: No Accompanied by: Self / Same As Patient Is last menstrual period known: Yes Last menstrual period: 12/19/23 Allergies DUST Allergy (Mild, Uncoded 01/11/24 13:49) Sneezing seasonal Allergy (Unknown, Uncoded 01/11/24 13:49) Unknown Medication List - Last Reconciled 01/11/24 by Hever Hernandez PA-C albuterol sulfate 90 mcg/actuation 2 puffs inhalation Q4-6H PRN budesonide 180 mcg/actuation (Pulmicort Flexhaler) 2 inhalations inhalation BID cetirizine 10 mg PO DAILY fluticasone propionate 50 mcg/actuation 1 spray intranasal DAILY hydroxyzine HCl 10 mg PO BEDTIME 30 days sertraline (Zoloft) 25 mg PO DAILY Tobacco use date assessed: 01/11/24 Dental Screening Dental Screen Date: 01/11/24 Did you have a dental visit in the last 12 months?: No Did you have a dental problem in the last 6 months where you did not have access to dental care?: No Was dental information given to patient?: Yes HPI pe HPI Details Patient is a 23-year-old female here today for an annual physical. Patient has a past medical history significant for dysmenorrhea, post COVID cough. Concern--> has skin lesion on her neck she would like evaluated by a trust advisor. .. asthma:? Has been on budesonide inhaler which has worked well for her. Still using her albuterol and pulmicort inhaler on a p.r.n. basis. .. FLAVIA/ MDD: Patient reports her anxiety has been fairly well controlled with current medication. She reports her mental is fairly well controlled with current SSRI therapy. She is doing well at work.. 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 Most recent Pap smear normal Vaccine:? Up-to-date with COVID vaccine, Need TDap , need PCV , declines flu vaccine.? ? PFSH Medical History Asthma MDD (major depressive disorder), recurrent episode, moderate Right ACL tear Surgical History History of repair of ACL Family History Family/Other Breast cancer Family/Other Breast cancer Mother Diabetes Maternal Grandfather HTN (hypertension) Social History (Updated 01/11/24 @ 13:48 by Hever Hernandez PA-C) Housing: House Alcohol intake: current Alcohol intake frequency: holidays/special occasions only Tobacco use type: Cigar and Smokeless Tobacco e-Cigarette/Vaping Use: Currently Using Second Hand Smoke Exposure: No Substance Use Type: Marijuana service: No Current occupational status: employed and student Current occupation: [employer] Sexual orientation: Lesbian/Sanon/Homosexual Cognitive needs: No Hearing needs: No Vision needs: No Female Reproductive History Menstrual Age of Menarche: 13 Date of last menstrual period: 12/19/23 Questionnaire PHQ-9 Over the last 2 weeks, how often have you been bothered by any of the following problems? 1. Little interest or pleasure in doing things: not at all 2. Feeling down, depressed, or hopeless: not at all 3. Trouble falling or staying asleep, or sleeping too much: not at all 4. Feeling tired or having little energy: not at all 5. Poor appetite or overeating: not at all 6. Feeling bad about yourself - or that you are a failure or have let yourself or your family down: not at all 7. Trouble concentrating on things, such as reading the newspaper or watching television: not at all 8. Moving or speaking so slowly that other people could have noticed. Or the opposite - being so fidgety or restless that you have been moving around a lot more than usual: not at all 9. Thoughts that you would be better off or of hurting yourself in some way: not at all Total score: 0 Depression Screening Interpretation: Negative Depression Screening Done: Yes 20612 - PHQ-9 Billing: Yes Source: Developed by Drs. Max Ornelas, Ce Reaves, Anthony Little and colleagues, with an educational deanna from [employer]. Thrive Questionnaire Date Thrive assessed: 01/11/24 I am a: Patient What is your living situation today?: I have a steady place to live Within the past 12 months, did the food you bought not last and you didn't have the money to get more?: Never true Within the past 12 months, did you worry whether your food would run out before you got money to buy more?: Never true Do you have trouble paying for medicines?: No Do you have trouble getting transportation to medical appointments?: No Do you have trouble paying your heating and electricity bill?: No Do you have trouble taking care of your child, family member or friend?: No Do you have trouble with day-to-day activities such as bathing, preparing meals, shopping, managing finances, etc.?: No Are you currently unemployed and looking for a job?: No Are you interested in more education?: No Please select the resources that you would like help with: None Currently or been in a relationship where the following occur: no concerns reported THRIVE Score: 0 AUDIT C Alcohol Use Questionnaire (AUDIT-C) 1. How often do you have a drink containing alcohol?: Monthly or less 2. How many drinks containing alcohol do you have on a typical day when you are drinking?: 1 or 2 3. How often do you have six or more drinks on one occasion?: Never Total Score: 1 FLAVIA-7 AMB Questionnaire FLAVIA-7 Date FLAVIA - 7 assessed: 01/11/24 Feeling nervous, anxious, or on edge: 2 = More than half the days Not being able to stop or control worryin = Not at all Worrying too much about different things: 2 = More than half the days Trouble relaxin = Nearly every day Being so restless that it is hard to sit still: 1 = Several days Becoming easily annoyed or irritable: 0 = Not at all Feeling afraid as if something awful might happen: 0 = Not at all Total FLAVIA-7 score (0-4 normal; 5-9 mild; 10-14 moderate; 15-21 severe): 8 Source: Developed by Drs. Max Ornelas, Ce Reaves, Anthony Little and colleagues, with an educational deanna from [employer]. FLAVIA-7 Assessment Billing FLAVIA-7 Assessment Tool: FLAVIA-7 Assessment 42712 ACT Questionnaire In the past 4 weeks, how much of the time did your asthma keep you from getting as much done at work, school or at home?: None of the time During the past 4 weeks, how often have you had shortness of breath?: Not at all During the past 4 weeks, how often did your asthma symptoms wake you up at night or earlier than usual in the morning?: Not at all During the past 4 weeks, how often have you had to use your rescue inhaler or nebulizer medication?: Not at all How would you rate your asthma control during the past 4 weeks?: Completely controlled ACT Interpretation: Negative Score: 25 Review of Systems Const Denies body aches, Denies chills, Denies excessive sweating, Denies fatigue, Denies fever(s) and Denies headache(s) Eyes Denies blurry vision ENT Denies dysphagia, Denies vertigo, Denies dizziness, Denies headache(s), Denies hearing loss and Denies tinnitus Card Denies chest pain, Denies chest pain with activity, Denies syncope, Denies irregular heart rhythm and Denies dyspnea Resp Denies chest congestion, Denies cough, Denies hemoptysis, Denies dyspnea and Denies wheezing GI Denies abdominal pain, Denies melena, Denies hematochezia, Denies coffee ground emesis, Denies dysphagia, Denies diarrhea, Denies nausea and Denies vomiting Denies urinary frequency, Denies dysuria, Denies urinary hesitancy and Denies urinary urgency Musc Denies arthralgias, Denies limited range of motion, Denies muscle cramps and Denies muscle weakness Skin/Breast Denies rash and Denies skin ulcer Neuro Denies Abnormal speech present, Denies confusion, Denies vertigo, Denies dizziness, Denies syncope, Denies headache(s), Denies memory loss and Denies seizure-like activity Psych Denies anxiety, Denies confusion, Denies depression, Denies memory loss, Denies panic attacks and Denies paranoia Endo Denies excessive sweating, Denies fatigue, Denies flushing, Denies polydipsia and Denies polyuria Aller/Immun Denies wheezing Physical exam (Primary Care) Vital Signs: Last Vital Signs Pulse 76 01/11/24 13:34 BP 98/64 01/11/24 13:34 Pulse Ox 97 01/11/24 13:34 Oxygen Delivery Method Room Air 01/11/24 13:34 BMI result Body Mass Index 20.8 Tobacco/Smoking Status: Tobacco use Status Tobacco use date assessed 01/11/24 01/11/24 13:39 Tobacco use type Cigar,Smokeless Tobacco 01/11/24 13:39 e-Cigarette/Vaping Use Currently Using 01/11/24 13:39 PHQ-9: PHQ-9 Score PHQ-9: Total score 0 01/11/24 13:39 Depression Screening Interpretation: Negative Thrive Assessment: Date of Thrive Assessment Date Thrive assessed 01/11/24 01/11/24 13:39 Currently or been in a relationship where the following occur: no concerns reported Const General: cooperative, comfortable, no acute distress, alert and awake; No confusion Orientation/consciousness: oriented to person, oriented to place, patient oriented x3 and No confusion HENMT Head: Yes normocephalic Ears: external ears normal and TM's normal bilaterally Face and sinus: No sinus tenderness Mouth: Normal oral and palatal mucosa present and tongue normal Teeth and gingiva: dentition normal and gingiva normal Throat: Yes posterior oropharynx normal, Yes tonsils normal and Yes uvula midline Eyes Conjunctivae: conjunctivae normal Sclerae: sclerae normal Pupils: Equal, round and reactive pupils present EOM: EOMs intact bilaterally Direct Ophthalmoscopy: No no photophobia Neck Neck: Yes no lymphadenopathy, No tender and Yes no JVD Thyroid: Thyroid normal Carotids: no bruits Chest Chest palpation & inspection: no tenderness Resp Effort & Inspection: normal respiratory effort, no audible wheezes, not labored and no stridor Auscultation: no crackles, no rales, no rhonchi and no wheezes Cardio Jugular venous distension: no JVD Rate: regular rate, not bradycardic and not tachycardic Rhythm: regular rhythm Bruits: no carotid bruits Peripheral pulses: Peripheral pulses 2+ throughout GI Inspection: Yes normal to inspection, No abdominal wall ecchymosis and No visible herniation Palpation (GI): Soft to palpation, nontender, no guarding, not rigid and No hepatosplenomegaly present Auscultation: normoactive bowel sounds General: Yes no CVA tenderness Back/Spine/Pelvis Back: no CVA tenderness and No back tenderness Cervical Spine: cervical ROM normal Thoracic/Lumbar Spine: thoracic and lumbar spine normal to inspection, straight leg raise negative bilaterally, No thoraco-lumbar ROM limited and No lumbar spinal tenderness Skin Lesions: no lesions Rashes: no rashes Wounds: no wounds Neuro General: oriented to person, oriented to place, patient oriented x3, CN's II-XI intact bilaterally and No confusion Cranial nerves: Yes Equal, round and reactive pupils present and Yes Normal accommodation reflex present Cognition (Neuro): normal cognition Speech: No Abnormal speech present Gait exam (Neuro): Normal gait present Motor exam (neuro): 5/5 motor strength present throughout Extrem Right upper extremity: full ROM; no cyanosis Left upper extremity: full ROM; no cyanosis Right lower extremity: no edema Left lower extremity: no edema Psych Appearance: grossly normal Mental Status: mental status grossly normal Affect: normal affect Attitude: cooperative Thought process: Normal thought process present Assessment and Plan Assessment & Plan (1) Annual physical exam: Code(s): Z00.00 - Encounter for general adult medical examination without abnormal findings (2) MDD (major depressive disorder), recurrent episode, moderate: Code(s): F33.1 - Major depressive disorder, recurrent, moderate Plan: Patient's PHQ-9 score -0. Her current medication is helpful. She otherwise denies any SI or HI. (3) Fatigue: Code(s): R53.83 - Other fatigue Qualifiers: Fatigue type: unspecified Qualified Code(s): R53.83 - Other fatigue Plan: Likely secondary to menstrual blood loss,. Will check CBC and iron studies. (4) Skin lesion of neck: Code(s): L98.9 - Disorder of the skin and subcutaneous tissue, unspecified Plan: Has a small skin lesion on the neck that she would like evaluated by a trust advisor. (5) Screening for diabetes mellitus (DM): Code(s): Z13.1 - Encounter for screening for diabetes mellitus (6) Asthma: Code(s): J45.909 - Unspecified asthma, uncomplicated Qualifiers: Asthma severity: mild Asthma persistence: intermittent Asthma complication type: uncomplicated Qualified Code(s): J45.20 - Mild intermittent asthma, uncomplicated Plan: Asthma has been well controlled with p.r.n. use of her albuterol inhaler. She denies any asthma exacerbations or nighttime awakenings with asthma symptoms. (7) FLAVIA (generalized anxiety disorder): Code(s): F41.1 - Generalized anxiety disorder Plan: Patient's FLAVIA-7 score positive for anxiety which has been existing condition for her. She feels her anxiety has been well controlled with current doses of her mental health medications. Orders: Orders IRON PROFILE Today D50.9 - Iron deficiency anemia, unspecified, R53.83 - Other fatigue Complete Blood Count no Diff Today R53.83 - Other fatigue TSH reflex Free T4 Today R53.83 - Other fatigue Pneumococcal 20 Immunization Today Z23 - Encounter for immunization TDaP Immunization Today Z23 - Encounter for immunization Comprehensive [place]. Panel Fast Today Z13.1 - Encounter for screening for diabetes mellitus Referrals Dermatology Referral L98.9 - Disorder of the skin and subcutaneous tissue, unspecified Medications: New pneumoc 20-priscilla conj-dip cr(PF) 0.5 mL IM ONCE 0.5 mL 0RF Z23 - Encounter for immunization Boostrix Tdap (diphth,pertus(acell),tetanus) 0.5 mL IM ONCE 0.5 mL 0RF NS Z23 - Encounter for immunization Changed From cetirizine 10 mg PO DAILY To cetirizine 10 mg PO DAILY 90 days PRN 90 tabs 1RF allergy symptoms Refilled sertraline (Zoloft) 25 mg PO DAILY 30 tabs 6RF F41.1 - Generalized anxiety disorder hydroxyzine HCl 10 mg PO BEDTIME 30 days 30 tabs 1RF F41.1 - Generalized anxiety disorder Coding Level of Care Code Est Pt Prev Care 18-39y(34828) Diagnoses Annual physical exam Z00.00 MDD (major depressive disorder), recurrent episode, moderate F33.1 Fatigue, unspecified type R53.83 Fatigue type: unspecified Skin lesion of neck L98.9 Screening for diabetes mellitus (DM) Z13.1 Mild intermittent asthma without complication J45.20 Asthma severity: mild Asthma persistence: intermittent Asthma complication type: uncomplicated FLAVIA (generalized anxiety disorder) F41.1 Additional Codes FLAVIA-7 Assessment Billing - FLAVIA-7 Assessment Tool: FLAVIA-7 Assessment 52703 ([id number])
[2024-01-11 13:34] VITALS: BP 98/64; PULSE 76; O2SAT 97; BMI 20.8
== END 2024-01-11 14:01 | disposition home or self-care (01) ==
PROVIDERS: PCP Physician Assistant; Visit Provider Physician Assistant
DX: Z00.00 Encounter for general adult medical examination without abnormal findings (principal); F33.1 Major depressive disorder, recurrent, moderate; R53.83 Other fatigue; Z23 Encounter for immunization; L98.9 Disorder of the skin and subcutaneous tissue, unspecified; Z13.1 Encounter for screening for diabetes mellitus; J45.20 Mild intermittent asthma, uncomplicated; F41.1 Generalized anxiety disorder
CPT/HCPCS: 90471; 90472; 90677; 90715; 99395

== ENCOUNTER 2024-02-04 09:51 | Outpatient (REF) | payer OTHER, SELFPAY ==
[2024-02-04 10:43] LABS: Hematocrit 40.4 % (37.0-47.0); Hemoglobin 13.6 g/dl (12.0-16.0); Mean Corpuscular HGB Conc 33.7 g/dl (31.0-35.0); Mean Corpuscular Hemoglobin 31.3 pg (27.0-33.0); Mean Corpuscular Volume 92.9 fL (80.0-98.0); Mean Platelet Volume 10.5 fL (9.4-12.3); Platelet Count 186 X10*3/uL (160-400); Red Blood Count 4.35 X10*6/uL (4.20-5.50); Red Cell Distribution Width 12.1 % (11.0-16.0); White Blood Count 5.1 X10*3/uL (4.8-10.8)
[2024-02-04 11:30] LABS: Alanine Aminotransferase 13 U/L (0-31); Albumin Level 4.2 g/dL (3.5-5.0); Alkaline Phosphatase 56 U/L (39-117); Anion Gap 12 (12-20); Aspartate Amino Transferase 15 U/L (5-31); Bilirubin Total 0.8 mg/dL (0.0-1.0); Blood Urea Nitrogen 10 mg/dL (9-16); Calcium 9.7 mg/dL (8.4-10.2); Carbon Dioxide 24 mmol/L (22-29); Chloride 106 mmol/L (96-108); Estimated Glomerular Filt Rate > 60; Glucose Fasting 89 mg/dL (60-99); Iron 109 mcg/dL (30-160); Percent Iron Saturation 36 % (15-50); Potassium 4.1 mmol/L (3.3-5.1); Sodium 138 mmol/L (135-145); Total Iron Binding Capacity 306 mcg/dL (228-428); Total Protein 7.4 g/dL (6.5-8.0); Unsaturated Iron Binding 197 ug/dL
[2024-02-04 11:46] LABS: TSH reflex Free T4 0.69 uIU/mL (0.32-4.0)
== END 2024-02-04 09:52 | disposition home or self-care (01) ==
LOC: HO.LAB 09:51
PROVIDERS: PCP Physician Assistant; Visit Provider Physician Assistant
DX: N93.9 Abnormal uterine and vaginal bleeding, unspecified (principal); Z13.1 Encounter for screening for diabetes mellitus; R53.83 Other fatigue; Z32.02 Encounter for pregnancy test, result negative; D50.9 Iron deficiency anemia, unspecified
CPT/HCPCS: 36415; 80053; 81002; 81025; 83540; 84443; 85027; 99212

== ENCOUNTER 2024-02-04 11:24 | Outpatient (AMB) | payer OTHER, SELFPAY ==
[2024-02-04 11:27] VITALS: BP 100/60; BMI 20.6
--- NOTE | 2024-02-04 11:27 | A.OFFVIS_ITS ---
Vital Signs 02/04/24 11:27 Height 5 ft 10 in Weight 143 lb 4.807 oz BMI 20.6 BP 100/60 Intake Visit Reasons: AUB/pelvic pain Jboss Developer Required: No Information Interpreted: non-clinical & clinical Graphic Art Technician: Graphic Art Technician Present (Citlaly Brush BENEDICTO) Accompanied by: Self / Same As Patient Allergies DUST Allergy (Mild, Uncoded 02/04/24 11:38) Sneezing seasonal Allergy (Unknown, Uncoded 02/04/24 11:38) Unknown Is last menstrual period known: Yes Last menstrual period: 01/20/24 HPI Comments Details: Patient is here today with the onset of pelvic cramping since November 09 start of bleeding on the 16 of November last 2 December 19, in January she spotted on the and the and then turned our started bleeding presumably with her normal cycle February 01. She denies any abnormal discharge or odors. No dysuria. No new intimate partner. CBC this week is normal, TSH is pending. Last pelvic ultrasound in October revealed multiple ovarian follicles PFSH Medical History Asthma MDD (major depressive disorder), recurrent episode, moderate Right ACL tear Surgical History History of repair of ACL Family History Family/Other Breast cancer Family/Other Breast cancer Mother Diabetes Maternal Grandfather HTN (hypertension) Social History (Updated 01/11/24 @ 13:48 by Hever Hernandez PA-C) Housing: House Alcohol intake: current Alcohol intake frequency: holidays/special occasions only Tobacco use type: Cigar and Smokeless Tobacco e-Cigarette/Vaping Use: Currently Using Second Hand Smoke Exposure: No Substance Use Type: Marijuana service: No Current occupational status: employed and student Current occupation: [employer] Sexual orientation: Lesbian/Sanon/Homosexual Cognitive needs: No Hearing needs: No Vision needs: No Female Reproductive History Menstrual Age of Menarche: 13 Date of last menstrual period: 01/20/24 Review of Systems Const All systems reviewed & are unremarkable except as noted in HPI and below Physical Exam Vital Signs: Last Vital Signs BP 100/60 02/04/24 11:27 BMI result Body Mass Index 20.6 Const General: cooperative, healthy appearing and no acute distress Orientation/consciousness: patient oriented x3 GI Inspection: Yes normal to inspection Palpation (GI): Soft to palpation and Other GI palpation findings present (Nontender) Rectal Exam - Female: visual inspection normal General: Yes bladder normal to palpation External Female Exam: normal appearance of the urethra Speculum Exam - Vagina: normal appearance of the vagina, normal palpation, normal vaginal discharge and vaginal bleeding Speculum Exam - Cervix: normal appearance of the cervix and normal palpation Bimanual exam- vagina & uterus: normal bimanual exam, normal palpation, uterine size normal, bladder normal to palpation, normal palpation, uterine shape normal and non-tender Bimanual Exam- Adnexa, other: normal adnexae OB/external & speculum: vaginal bleeding Neuro General: patient oriented x3 Results AMB Test Urine AMB Test Urine Negative Last Edit by Citlaly Brush CMA on 11:43 AMB Urinalysis Dipstick UR Leukocytes Negative Last Edit by Citlaly Brush CMA on 02/04/24 11:49 UR Nitrite Negative Last Edit by Citlaly Brush CMA on 02/04/24 11:49 UR Urobilinogen Normal Last Edit by Citlaly Brush CMA on 02/04/24 11:49 UR Protein 100 Last Edit by Citlaly Brush CMA on 02/04/24 11:49 UR Ph 6.5 Last Edit by Citlaly Brush CMA on 02/04/24 11:49 UR Blood Trace Last Edit by Citlaly Brush CMA on 02/04/24 11:49 UR Specific [place] 1.020 Last Edit by Citlaly Brush CMA on 02/04/24 11:49 UR Ketone Negative Last Edit by Citlaly Brush CMA on 02/04/24 11:49 UR Bilirubin Negative Last Edit by Citlaly Brush CMA on 02/04/24 11:49 UR Glucose Negative Last Edit by Citlaly Brush CMA on 02/04/24 11:49 Results Reviewed Results Reviewed: [address] [address] Ultrasound Report Signed Patient: Zenaida Brown I MR#: [id number] : 2000 Acct:[id number] Age/Sex: 22 / F ADM Date: 10/12/23 Loc: HO.US Attending Dr: Nia Lanier CNM Ordering Physician: Nia Lanier CNM Date of Service: 10/12/23 Procedure(s): US pelvic and transvaginal Accession Number(s): [id number] cc: Hever Hernandez PA-C; Nia Lanier CNM~ EXAMINATION: US PELVIS AND TRANSVAGINAL CLINICAL INFORMATION: Left ovarian cyst, last menstrual period 10/04/2023. Left lower quadrant pain. COMPARISON: Pelvic ultrasound of 08/12/2023. TECHNIQUE: Ultrasound of the pelvis is performed using both transabdominal and transvaginal transducers along with Doppler. Transvaginal imaging is performed due to inadequate visualization transabdominally. FINDINGS: The uterus measures 6.7 x 4.0 x 5.1 cm. No discrete fibroid identified. Small amount of free fluid in the pelvis. Endometrial thickness is 0.8 cm. Endometrium is multilayered. Right ovary measures 3.7 x 2.4 x 1.9 cm, volume 8.8 mL. Left ovary measures 3.6 x 2.2 x 3.0 cm, volume 12.4 mL. Bilateral ovaries demonstrate multiple small follicles. US/US pelvic and transvaginal IMPRESSION: 1. No discrete fibroid. 2. Endometrial thickness is 0.8 cm. 3. Bilateral ovaries demonstrate multiple small follicles. 4. Small amount of free fluid in the pelvis. Dictated By: Migdalia Schmitt MD Signed By: <Electronically signed by Migdalia Schmitt MD in OV> 10/13/23 1339 DD/ 1419 TD/TT: Anesthesiology Medical Doctor: Assessment & Plan Assessment & Plan (1) Abnormal uterine bleeding (AUB): Code(s): N93.9 - Abnormal uterine and vaginal bleeding, unspecified Plan Discussed: Previous ultrasound findings, recent labs. GC chlamydia and BV panel obtained. Advised to continue with ibuprofen as needed for cramping. Monitor cycles if this cycle is heavier prolonged to call the office for follow-up, await BV and GC chlamydia results Molly, plan observation of cycles for now. Next appointment is scheduled for annual in August 2024. All of her questions and concerns were addressed to the best of my ability. She is agreeable to the plan of care. This note is constructed using voice recognition software. While every effort has been made to ensure accuracy, project manager/team coach errors may have been included. Orders: Orders CT NG by PCR Today N93.9 - Abnormal uterine and vaginal bleeding, unspecified Bacterial Vaginosis Panel Today N93.9 - Abnormal uterine and vaginal bleeding, unspecified AMB HCG Urine Test Today Z32.02 - Encounter for test, result negative AMB Urinalysis Dipstick Today R10.2 - Pelvic and perineal pain Coding Level of Care Code Est Pt Level 3 (49103) Diagnoses Abnormal uterine bleeding (AUB) N93.9
== END 2024-02-04 11:54 | disposition home or self-care (01) ==
PROVIDERS: PCP Physician Assistant; Visit Provider Advanced Practice Midwife
DX: N93.9 Abnormal uterine and vaginal bleeding, unspecified (principal); Z32.02 Encounter for pregnancy test, result negative; R10.2 Pelvic and perineal pain
CPT/HCPCS: 99213

== ENCOUNTER 2024-02-04 11:39 | Outpatient (REF) | payer OTHER, SELFPAY ==
[2024-02-04 18:45] LABS: CT PCR NOT DETECTED (Not Detect.); NG PCR NOT DETECTED (Not Detect.)
[2024-02-05 12:16] LABS: BV Int Neg Control Negative (Negative); BV Int Pos Control Positive (Positive)
== END 2024-02-04 11:40 | disposition home or self-care (01) ==
LOC: HO.LNP 11:39
PROVIDERS: Visit Provider Advanced Practice Midwife
DX: N93.9 Abnormal uterine and vaginal bleeding, unspecified (principal); R10.2 Pelvic and perineal pain; Z32.02 Encounter for pregnancy test, result negative; R53.83 Other fatigue
CPT/HCPCS: 0353U; 87480; 87510; 87660

== ENCOUNTER 2024-02-17 08:08 | Outpatient (AMB) | payer OTHER, SELFPAY ==
[2024-02-17 08:32] VITALS: BP 102/60; PULSE 60; TEMP 36.6; O2SAT 98; BMI 20.5
--- NOTE | 2024-02-17 08:32 | AM.OFFWIN_ITS ---
Intake Vital Signs 02/17/24 08:32 Height 5 ft 10 in Weight 143 lb BMI 20.5 BP 102/60 Blood Pressure Location Rt brachial Position Sitting Pulse 60 Pulse Source Pulse Oximeter Temp 97.8 F Temp Source Temporal Artery Scan Pulse Oximetry (%) 98 Intake Visit Reasons: EP RT eye swollen itchy pain Intake Note: pt is here for right eye swollen, itchy with pain for 3 days Patient Tobacco Use Status: Never used Tobacco Allergies DUST Allergy (Mild, Uncoded 02/17/24 08:33) Sneezing seasonal Allergy (Unknown, Uncoded 02/17/24 08:33) Unknown Do you need a note to return to daycare/school/sports/work: Yes HPI HPI Comments History of Present Illness Details This is a 23-year-old female who presents to the walk-in clinic complaining of right eyelid swelling, pain and itching x3 days. Patient passes her primary care physician and she was given a prescription for polymyxin- trimethoprim eyedrops. Patient states that the swelling has slightly worsened since starting the eye drops. She denies any vision changes. She denies any fever/chills. [facility] Medical History Asthma MDD (major depressive disorder), recurrent episode, moderate Right ACL tear Surgical History History of repair of ACL Family History Family/Other Breast cancer Family/Other Breast cancer Mother Diabetes Maternal Grandfather HTN (hypertension) Social History Housing: House Alcohol intake: current Alcohol intake frequency: holidays/special occasions only Patient Tobacco Use Status: Never used Tobacco Tobacco use type: Cigar and Smokeless Tobacco e-Cigarette/Vaping Use: Currently Using Second Hand Smoke Exposure: No Substance Use Type: Marijuana service: No Current occupational status: employed and student Current occupation: [employer] Sexual orientation: Lesbian/Sanon/Homosexual Cognitive needs: No Hearing needs: No Vision needs: No Female Reproductive History Menstrual Age of Menarche: 13 Review of Systems Const All systems reviewed & are unremarkable except as noted in HPI and below Reports no additional complaints Eyes Reports no additional complaints ENT Reports no additional complaints Card Reports no additional complaints Resp Reports no additional complaints GI Reports no additional complaints Reports no additional complaints Musc Reports no additional complaints Skin/Breast Reports system reviewed and no additional complaints, except as documented Neuro Reports no additional complaints Psych Reports no additional complaints Endo Reports no additional complaints Haider/Lymph Reports no additional complaints Aller/Immun Reports no additional complaints Physical Exam Vital Signs: Last Vital Signs Temp 97.8 F 02/17/24 08:32 Pulse 60 02/17/24 08:32 BP 102/60 02/17/24 08:32 Pulse Ox 98 02/17/24 08:32 BMI result Body Mass Index 20.5 Const Other: Vital signs reviewed. Constitutional: Non-toxic appearing. No acute distress. Well-developed and well-nourished. HEENT: Normocephalic and atraumatic. There is swelling of the right upper eyelid with an internal hordeolum present on the lateral aspect of the inner eyelid. There is no conjunctival injection or erythema. Skin: Warm and dry. No rashes or lesions noted. Neck: Full and painless range of motion. No cervical lymphadenopathy. Cardio: Regular rate. Pulmonary: No respiratory distress. No accessory muscle usage. Musculoskeletal: Normal range of motion in joints throughout the body. No deformity or other signs of injury. Neuro: Alert and oriented x4. Cranial nerves 2-12 grossly intact. No focal deficits appreciated. Psych: Normal mood and affect. Assessment & Plan Assessment & Plan (1) Internal hordeolum of right eye: Code(s): H00.023 - Hordeolum internum right eye, unspecified eyelid Qualifiers: Eyelid: upper Qualified Code(s): H00.021 - Hordeolum internum right upper eyelid Plan: This is a 23 female who presented to the walk-in clinic complaining of pain, swelling, and itching of the right upper eyelid. On physical examination, there is an internal hordeolum right upper eyelid. I recommended the patient continue with polymyxin/trimethoprim ophthalmic drops and she was recommended to start utilizing warm compresses alternating with cool compresses. Patient was instructed to avoid contact use as well as avoid make-up use until the hordeolum resolves. Patient was also instructed to utilize antihistamines to help with the itching. She was advised to follow-up here or proceed to the emergency room if she were to develop significant worsening of her symptoms. Patient verbalized her understanding and she is in agreement with the plan. Coding Level of Care Code Est Pt Level 3 (39479) Diagnoses Hordeolum internum of right upper eyelid H00.021 Eyelid: upper
== END 2024-02-17 08:48 | disposition home or self-care (01) ==
PROVIDERS: PCP Physician Assistant; Visit Provider Physician Assistant Medical
DX: H00.021 Hordeolum internum right upper eyelid (principal)
CPT/HCPCS: 99213

== ENCOUNTER 2024-03-14 09:12 | Outpatient (REF) | payer OTHER, SELFPAY ==
[2024-03-14 10:31] LABS: Hematocrit 42.3 % (37.0-47.0); Hemoglobin 14.3 g/dl (12.0-16.0); Mean Corpuscular HGB Conc 33.8 g/dl (31.0-35.0); Mean Corpuscular Hemoglobin 31.4 pg (27.0-33.0); Mean Corpuscular Volume 92.8 fL (80.0-98.0); Mean Platelet Volume 10.3 fL (9.4-12.3); Platelet Count 188 X10*3/uL (160-400); Red Blood Count 4.56 X10*6/uL (4.20-5.50); Red Cell Distribution Width 12.3 % (11.0-16.0)
[2024-03-14 10:48] LABS: HCG Quantitative < 2 mIU/mL
[2024-03-15 03:38] LABS: CT PCR NOT DETECTED (Not Detect.); NG PCR NOT DETECTED (Not Detect.)
[2024-03-15 10:48] LABS: Bacterial Vaginosis PCR POSITIVE (Negative); Candida Group PCR NOT DETECTED (Not Detect); Candida glab krusei PCR NOT DETECTED (Not Detect); Trichomonas vaginalis PCR NOT DETECTED (Not Detect)
[2024-03-28 11:34] LABS: Testosterone, Total 21 ng/dL (2-45)
== END 2024-03-14 09:13 | disposition home or self-care (01) ==
LOC: HO.LAB 09:12
PROVIDERS: PCP Physician Assistant; Visit Provider Advanced Practice Midwife
DX: N93.9 Abnormal uterine and vaginal bleeding, unspecified (principal); N92.6 Irregular menstruation, unspecified; R10.2 Pelvic and perineal pain; R53.83 Other fatigue; L70.9 Acne, unspecified
CPT/HCPCS: 0352U; 0353U; 36415; 83498; 84146; 84402; 84403; 84702; 85027; 99212

== ENCOUNTER 2024-03-14 09:12 | Outpatient (AMB) | payer OTHER, SELFPAY ==
--- NOTE | 2024-03-14 09:14 | MHC.OFFVIS ---
Vital Signs 03/14/24 09:19 03/14/24 09:53 Height 5 ft 10 in Weight 136 lb BMI 19.5 19.5 BP 96/66 Intake Visit Reasons: Discuss treatment for Abnormal Uterine Bleeding Intake Note: Severe cramping and very irregular periods, bleeding for 2-3 weeks Dance Artist Required: No Information Interpreted: non-clinical & clinical Histology Aide: Histology Aide Present (Radha) Accompanied by: Mother Allergies DUST Allergy (Mild, Uncoded 03/14/24 09:21) Sneezing seasonal Allergy (Unknown, Uncoded 03/14/24 09:21) Unknown Is last menstrual period known: Yes Last menstrual period: 03/06/24 Post menopausal: No PFSH Medical History (Updated 03/14/24 @ 09:45 by Nia Lanier CNM) Asthma MDD (major depressive disorder), recurrent episode, moderate Right ACL tear Surgical History History of repair of ACL Family History (Updated 03/14/24 @ 09:25 by BENEDICTO Cueva) Family/Other Breast cancer Family/Other Breast cancer Mother Diabetes Maternal Grandfather HTN (hypertension) Maternal Aunt Breast cancer Maternal Aunt Tumor Social History Housing: House Alcohol intake: current Alcohol intake frequency: holidays/special occasions only Patient Tobacco Use Status: Never used Tobacco Tobacco use type: Cigar and Smokeless Tobacco e-Cigarette/Vaping Use: Currently Using Second Hand Smoke Exposure: No Substance Use Type: Marijuana service: No Current occupational status: employed and student Current occupation: [employer] Sexual orientation: Lesbian/Sanon/Homosexual Cognitive needs: No Hearing needs: No Vision needs: No Female Reproductive History Menstrual Age of Menarche: 13 Duration of menses: other Date of last menstrual period: 03/06/24 control method: none Total pregnancies: 0 Date of last pap smear: 08/12/23 (negative) Physical Exam Vital Signs: Last Vital Signs BP 96/66 03/14/24 09:19 BMI result Body Mass Index 19.5 Assessment & Plan Assessment & Plan (1) Abnormal uterine bleeding (AUB): Code(s): N93.9 - Abnormal uterine and vaginal bleeding, unspecified Category: Medical (2) Pelvic pain: Code(s): R10.2 - Pelvic and perineal pain Category: Medical Orders: Orders Testosterone, Free/Total 03/14/24 L70.9 - Acne, unspecified, N92.6 - Irregular menstruation, unspecified 17 Hydroxyprogesterone 03/14/24 L70.9 - Acne, unspecified, N92.6 - Irregular menstruation, unspecified CT NG by PCR 03/14/24 R10.2 - Pelvic and perineal pain, N93.9 - Abnormal uterine and vaginal bleeding, unspecified US pelvic and transvaginal 03/17/24 N93.9 - Abnormal uterine and vaginal bleeding, unspecified, R10.2 - Pelvic and perineal pain Complete Blood Count no Diff 03/14/24 L70.9 - Acne, unspecified, N92.6 - Irregular menstruation, unspecified Prolactin 03/14/24 L70.9 - Acne, unspecified, N92.6 - Irregular menstruation, unspecified HCG Quantitative 03/14/24 L70.9 - Acne, unspecified, N92.6 - Irregular menstruation, unspecified Bacterial Vaginosis Panel 03/14/24 R10.2 - Pelvic and perineal pain, N93.9 - Abnormal uterine and vaginal bleeding, unspecified Coding Diagnoses Abnormal uterine bleeding (AUB) N93.9 Pelvic pain R10.2
[2024-03-14 09:19] VITALS: BP 96/66; BMI 19.5
--- NOTE | 2024-03-14 09:51 | MHC.OFFVIS ---
Vital Signs 03/14/24 09:19 03/14/24 09:53 Height 5 ft 10 in Weight 136 lb BMI 19.5 19.5 BP 96/66 Intake Visit Reasons: Discuss treatment for Abnormal Uterine Bleeding Allergies DUST Allergy (Mild, Uncoded 03/14/24 09:21) Sneezing seasonal Allergy (Unknown, Uncoded 03/14/24 09:21) Unknown HPI Comments Details: Patient is here today with her mom Brielle, has concerns due to her frequency of bleeding and cramping. She reports irregular unscheduled bleeding, heavy last week changed her pad 3 times over a course of 6 hours. She feels fatigued. Admits to pelvic cramping and right-sided discomfort similar to when she had her ovarian cyst. History of same sex partner, denies any risk to . Last ultrasound revealed multiple follicles on both ovaries. She admits to having acne on her chest and back, no hirsutism. History of prior Depo use. TSH last month was 0.69., and hemoglobin 13.6. [facility] Medical History (Updated 03/14/24 @ 09:45 by Nia Lanier CNM) Asthma MDD (major depressive disorder), recurrent episode, moderate Right ACL tear Surgical History History of repair of ACL Family History (Updated 03/14/24 @ 09:25 by BENEDICTO Cueva) Family/Other Breast cancer Family/Other Breast cancer Mother Diabetes Maternal Grandfather HTN (hypertension) Maternal Aunt Breast cancer Maternal Aunt Tumor Social History Housing: House Alcohol intake: current Alcohol intake frequency: holidays/special occasions only Patient Tobacco Use Status: Never used Tobacco Tobacco use type: Cigar and Smokeless Tobacco e-Cigarette/Vaping Use: Currently Using Second Hand Smoke Exposure: No Substance Use Type: Marijuana service: No Current occupational status: employed and student Current occupation: [employer] Sexual orientation: Lesbian/Sanon/Homosexual Cognitive needs: No Hearing needs: No Vision needs: No Female Reproductive History Menstrual Age of Menarche: 13 Duration of menses: other control method: none Review of Systems Const All systems reviewed & are unremarkable except as noted in HPI and below Physical Exam Vital Signs: Last Vital Signs BP 96/66 03/14/24 09:19 BMI result Body Mass Index 19.5 Const General: cooperative, healthy appearing and no acute distress Orientation/consciousness: patient oriented x3 GI Inspection: Yes normal to inspection Palpation (GI): Soft to palpation and Other GI palpation findings present (Nontender) Rectal Exam - Female: visual inspection normal General: Yes bladder normal to palpation External Female Exam: normal appearance of the urethra Speculum Exam - Vagina: normal appearance of the vagina, normal palpation and normal vaginal discharge Speculum Exam - Cervix: normal appearance of the cervix and normal palpation Bimanual exam- vagina & uterus: normal bimanual exam, normal palpation, uterine size normal, bladder normal to palpation, normal palpation, uterine shape normal and non-tender Bimanual Exam- Adnexa, other: normal adnexae and tender on the right Neuro General: patient oriented x3 Quality Reporting (2019) Adult ([facility] 138//69) Body Mass Index: 19.5 Results Reviewed Results Reviewed: [place] [id number] Ultrasound Report Signed Patient: Zenaida Brown I MR#: [id number] : 2000 Acct:[id number] Age/Sex: 22 / F ADM Date: 10/12/23 Loc: . Attending Dr: Nia Lanier CNM Ordering Physician: Nia Lanier CNM Date of Service: 10/12/23 Procedure(s): US pelvic and transvaginal Accession Number(s): [id number] cc: Hever Hernandez PA-C; Nia Lanier CNM~ EXAMINATION: US PELVIS AND TRANSVAGINAL CLINICAL INFORMATION: Left ovarian cyst, last menstrual period 10/04/2023. Left lower quadrant pain. COMPARISON: Pelvic ultrasound of 08/12/2023. TECHNIQUE: Ultrasound of the pelvis is performed using both transabdominal and transvaginal transducers along with Doppler. Transvaginal imaging is performed due to inadequate visualization transabdominally. FINDINGS: The uterus measures 6.7 x 4.0 x 5.1 cm. No discrete fibroid identified. Small amount of free fluid in the pelvis. Endometrial thickness is 0.8 cm. Endometrium is multilayered. Right ovary measures 3.7 x 2.4 x 1.9 cm, volume 8.8 mL. Left ovary measures 3.6 x 2.2 x 3.0 cm, volume 12.4 mL. Bilateral ovaries demonstrate multiple small follicles. US/US pelvic and transvaginal IMPRESSION: 1. No discrete fibroid. 2. Endometrial thickness is 0.8 cm. 3. Bilateral ovaries demonstrate multiple small follicles. 4. Small amount of free fluid in the pelvis. Dictated By: Migdalia Schmitt MD Signed By: <Electronically signed by Migdalia Schmitt MD in OV> 10/13/23 1339 DD/ 1419 TD/TT: Insecticide Sprayer: Assessment & Plan Assessment & Plan (1) Abnormal uterine bleeding (AUB): Code(s): N93.9 - Abnormal uterine and vaginal bleeding, unspecified Category: Medical (2) Pelvic pain: Code(s): R10.2 - Pelvic and perineal pain Category: Medical (3) Fatigue: Code(s): R53.83 - Other fatigue Category: Medical Qualifiers: Fatigue type: unspecified Qualified Code(s): R53.83 - Other fatigue Plan Discussed: Workup for PCOS, to include lab work, ultrasound ordered due to right-sided pelvic pain. BV and GC and chlamydia cultures obtained. Encouraged to hydrate well and to report any increased pain, follow up at next visit in person to discuss lab work and pelvic ultrasound. All of her questions and concerns were addressed to the best of my ability and shared decision making. She is agreeable to the plan of care. This note is constructed using voice recognition software. While every effort has been made to ensure accuracy, statement clerks manager errors may have been included. Orders: Orders Testosterone, Free/Total Today L70.9 - Acne, unspecified, N92.6 - Irregular menstruation, unspecified 17 Hydroxyprogesterone Today L70.9 - Acne, unspecified, N92.6 - Irregular menstruation, unspecified US pelvic and transvaginal Today N93.9 - Abnormal uterine and vaginal bleeding, unspecified, R10.2 - Pelvic and perineal pain Complete Blood Count no Diff Today L70.9 - Acne, unspecified, N92.6 - Irregular menstruation, unspecified Prolactin Today L70.9 - Acne, unspecified, N92.6 - Irregular menstruation, unspecified HCG Quantitative Today L70.9 - Acne, unspecified, N92.6 - Irregular menstruation, unspecified Coding Level of Care Code Est Pt Level 4 (09447) Diagnoses Abnormal uterine bleeding (AUB) N93.9 Pelvic pain R10.2 Fatigue, unspecified type R53.83 Fatigue type: unspecified
[2024-03-14 09:53] VITALS: BMI 19.5
== END 2024-03-14 09:48 | disposition home or self-care (01) ==
PROVIDERS: PCP Physician Assistant; Visit Provider Advanced Practice Midwife
DX: N93.9 Abnormal uterine and vaginal bleeding, unspecified (principal); R10.2 Pelvic and perineal pain; R53.83 Other fatigue
CPT/HCPCS: 99214

== ENCOUNTER 2024-03-14 10:21 | Outpatient (REF) | payer OTHER, SELFPAY | END 2024-03-14 10:22 | disposition home or self-care (01) | LOC: HO.LNP 10:21 | PROVIDERS: Visit Provider Advanced Practice Midwife | DX: Z13.89 Encounter for screening for other disorder (principal) ==

== ENCOUNTER 2024-03-17 13:22 | Outpatient (REF) | payer OTHER, SELFPAY ==
--- NOTE | ~2024-03-17 | US_ITS ---
EXAMINATION: US PELVIS CLINICAL INFORMATION: Abnormal uterine and vaginal bleeding COMPARISON: None available. TECHNIQUE: Ultrasound of the pelvis is performed using both transabdominal and transvaginal transducers along with Doppler. Transvaginal imaging is performed due to inadequate visualization transabdominally. FINDINGS: The uterus is retroverted and measures 7.7 x 4.2 x 4.9 cm in dimension. No focal uterine lesion. Endometrial thickness is normal measuring 0.2 cm. The left ovary is normal-appearing and measures 2.4 x 2.2 x 1.5 cm. The right ovary is enlarged and measures 6 x 3.2 x 3.9 cm. There is a 4 x 3.7 x 3.3 cm physiologic right ovarian cyst with daughter cyst. No imaging follow-up recommended based on cyst size and patient age. There is a small amount of fluid in the pelvis. US/US pelvic and transvaginal IMPRESSION: Enlarged right ovary containing 4 x 3.7 x 3.3 cm physiologic cyst. Normal-appearing uterus. Normal thickness endometrium.
== END 2024-03-17 13:23 | disposition home or self-care (01) ==
LOC: HO.US 13:22
PROVIDERS: PCP Physician Assistant; Visit Provider Advanced Practice Midwife
DX: N93.9 Abnormal uterine and vaginal bleeding, unspecified (principal); R10.2 Pelvic and perineal pain
CPT/HCPCS: 76830; 76856

== ENCOUNTER 2024-03-29 16:32 | Emergency (ER) | payer OTHER, SELFPAY ==
--- NOTE | ~2024-03-29 | CT_ITS ---
EXAMINATION: CT HEAD WITHOUT CONTRAST CLINICAL INFORMATION: Head trauma COMPARISON: Brain MRI from 2019 TECHNIQUE: Contiguous axial imaging was performed from the skull base to vertex without intravenous administration of contrast. This CT examination was performed using dose optimization techniques as appropriate, variously including the following: *Automated exposure control *Adjustment of mA and/or kV according to patient size (this includes techniques or standardized protocols for targeted exams where dose is matched to indication/reason for exam; i.e. extremities or head) *Use of iterative reconstruction technique DLP: 617 mGy-cm FINDINGS: There is no evidence for an extra-axial collection. There is no evidence for intra-or extra-axial hemorrhage. The ventricles and extra-axial CSF spaces are appropriate. Choudhary-white matter differentiation is normal. No mass, mass effect or infarct is seen. Review of bone windows is normal. No skull fracture. Sinuses mastoid air cells and middle ears are clear. CT/CT head/brain wo IV con IMPRESSION: Unremarkable exam.
--- NOTE | ~2024-03-29 | CT_ITS ---
EXAMINATION: CT CERVICAL SPINE WITHOUT CONTRAST CLINICAL INFORMATION: Trauma COMPARISON: None available. TECHNIQUE: Axial images through the cervical spine without contrast. Sagittal and coronal reconstructions. This CT examination was performed using dose optimization techniques as appropriate, variously including the following: *Automated exposure control *Adjustment of mA and/or kV according to patient size (this includes techniques or standardized protocols for targeted exams where dose is matched to indication/reason for exam; i.e. extremities or head) *Use of iterative reconstruction technique DLP: 268 mGy-cm FINDINGS: Bone alignment is normal. No fracture or dislocation. Normal disc spaces. Normal prevertebral soft tissues. Lung apices are clear. CT/CT cervical spine wo IV con IMPRESSION: Unremarkable examination. Fleischner guidelines were followed.
[2024-03-29 17:00] VITALS: BP 112/52; PULSE 72; RESP 18; TEMP 37.2; O2SAT 96; BMI 19.7
--- NOTE | 2024-03-29 17:02 | ED.HEATRA ---
HPI - Head Injury General Chief complaint: Head Injury Stated complaint: possible concussion Time Seen by Provider: 03/29/24 17:15 Source: patient Mode of arrival: ambulatory Limitations: no limitations History of Present Illness ED Provider: Sylvia Mcgowan PA-C HPI Narrative: 23-year-old female presenting for evaluation of a concussion after her dog ran into her head last night. Her dog ran at fast speed into her head around 1900 yesterday. Patient did not lose consciousness and felt okay last night. This morning while at work she began to have a headache and brain fog, work requires her to look at multiple computer screens and input data. About 1 hour ago began feeling nauseous but has not vomited. Denies neck pain. Headache is mainly in the front of her head where the dog hit. Has had concussions before. MD Complaint: head injury Onset (ago): day(s) (1) Mechanism of Injury: other (50-60 lb dog ran into her head) Place: home Loss of Consciousness: no Location of injury: frontal Radiation: none Other Injuries: none Associated symptoms: vision changes (photosensitivity), nausea and other (brain fog) Related Data Home Medications ?Medication ?Instructions ?Recorded ?Confirmed fluticasone propionate 50 1 spray intranasal DAILY 02/05/21 01/11/24 mcg/actuation nasal spray,suspension budesonide 180 mcg/actuation 2 inh inhalation BID 09/17/21 01/11/24 breath activated powder inhaler (Pulmicort Flexhaler) Previous Rx's ?Medication ?Instructions ?Recorded albuterol sulfate 90 mcg/actuation 2 puff inhalation Q4-6H PRN 02/10/21 aerosol inhaler shortness of breath or wheezing #8.5 grams cetirizine 10 mg tablet 10 mg PO DAILY PRN allergy 01/11/24 symptoms 90 days #90 tabs hydroxyzine HCl 10 mg tablet 10 mg PO BEDTIME 30 days #30 tabs 01/11/24 sertraline 25 mg tablet (Zoloft) 25 mg PO DAILY #30 tabs 01/11/24 metronidazole 500 mg tablet 500 mg PO BID 7 days #14 tabs 03/21/24 Allergies Allergy/AdvReac Type Severity Reaction Status Date / Time DUST Allergy Mild Sneezing Uncoded 03/29/24 17:04 seasonal Allergy Mild Unknown Uncoded 03/29/24 17:04 Review of Systems Constitutional: Constitutional: Reports no additional constitutional complaints, Denies chills, Denies fever(s), Reports headache(s) and Denies night sweats Eyes: Eyes: Reports no additional eye complaints, Denies blurry vision, Denies change in vision, Denies diplopia, Denies eye discharge, Denies loss of vision, Denies eye pain and Reports photophobia ENT: Denies dizziness, Reports headache(s) and Denies neck pain Cardiovascular: Cardiovascular: Reports no additional cardiovascular complaints, Denies chest pain, Denies lightheadedness, Denies Loss of Consciousness and Denies dyspnea Respiratory: Respiratory: Reports no additional respiratory complaints and Denies dyspnea Gastrointestinal: Gastrointestinal: Reports no additional gastrointestinal complaints, Denies abdominal pain, Denies melena, Denies hematochezia, Denies change in bowel habits, Denies change in stool character and Reports nausea Genitourinary: Genitourinary: Denies hematuria, Denies urinary frequency, Denies dysuria, Denies urinary incontinence, Denies urinary hesitancy and Denies urinary urgency Musculoskeletal: Musculoskeletal: Reports no additional musculoskeletal complaints, Denies neck pain, Denies numbness and Denies tingling Neurologic: Denies dizziness, Reports headache(s), Denies loss of vision, Denies numbness and Denies tingling Psychiatric: Psychiatric: Reports no additional psychiatric complaints Endocrine: Endocrine: Reports no additional endocrine complaints Hematologic/Lymphatic: Hematologic/Lymphatic: Reports no additional hematologic/lymphatic complaints Allergic/Immunologic: Allergic/Immunologic: Reports no additional allergic/immunologic complaints [facility] Past Medical History Attestation statement: The following information was validated with the patient. Source: old records reviewed and nursing notes reviewed Medical History Asthma MDD (major depressive disorder), recurrent episode, moderate Right ACL tear Surgical History History of repair of ACL Family History Family History Family/Other Breast cancer Family/Other Breast cancer Mother Diabetes Maternal Grandfather HTN (hypertension) Maternal Aunt Breast cancer Maternal Aunt Tumor Social History Social History Housing: House Alcohol intake: current Alcohol intake frequency: holidays/special occasions only Patient Tobacco Use Status: Never used Tobacco Tobacco use type: Cigar and Smokeless Tobacco e-Cigarette/Vaping Use: Currently Using Second Hand Smoke Exposure: No Substance Use Type: Marijuana Advance Directives: No Advance Directives Information Provided: No Do you have a plan to hurt others: No Plan service: No Current occupational status: employed and student Current occupation: [employer] Sexual orientation: Lesbian/Sanon/Homosexual Cognitive needs: No Hearing needs: No Vision needs: No Physical Exam Vital Signs: Vital Signs: Last Vital Signs Temp 98.6 F 03/29/24 19:11 Pulse 63 03/29/24 19:11 Resp 20 03/29/24 19:11 BP 97/62 03/29/24 19:11 Pulse Ox 98 03/29/24 19:11 O2 Del Method Room Air 03/29/24 19:11 BMI result Body Mass Index 19.7 Const: General: cooperative, no acute distress, alert and awake Nutritional Appearance: well nourished Orientation/consciousness: patient oriented x3 Limitations: no limitations HEENT: Head: Yes normal to inspection, Yes normocephalic, Yes atraumatic and No contusion Ears: hearing grossly normal bilaterally and external ears normal General nose exam: Normal external nose present, no nasal discharge noted and no epistaxis Face and sinus: Yes normal facial exam, No abrasion and No laceration Mouth: Normal oral and palatal mucosa present, no drooling and no muffled voice Eyes: General: appearance normal, both eyes and all related structures Periorbital: periorbital findings normal Eyelids: Yes eyelids normal Conjunctivae: conjunctivae normal Pupils: Equal, round and reactive pupils present EOM: EOMs intact bilaterally Direct Ophthalmoscopy: photophobia Neck: Neck: Yes normal visual inspection, Yes full ROM and Yes no lymphadenopathy Chest: Chest palpation & inspection: normal inspection of the chest Resp: Effort & Inspection: normal respiratory effort and able to speak in complete sentences GI: Inspection: Yes normal to inspection Back/Spine/Pelvis: Cervical Spine: cervical ROM normal, No cervical muscular tenderness and No Cervical spine tenderness Neuro: General: patient oriented x3 and moves all extremities Cranial nerves: Yes Equal, round and reactive pupils present and Yes Bilaterally intact EOM present Cognition (Neuro): normal cognition Motor exam (neuro): 5/5 motor strength present throughout Sensory Exam: Normal double simultaneous stimulation for sensation Coordination: [id number] test normal Extrem: General: Yes normal to inspection, Yes full ROM and Yes capillary refill normal Psych: Appearance: grossly normal Mental Status: mental status grossly normal Affect: normal affect Attitude: cooperative Thought process: Normal thought process present Thought content: Normal thought content present Insight: Good insight present (Psych) Course Course Course Narrative: This is a Rapid Medical Examination (RME) performed by Lyn Sorenson PA-C in triage. Full HPI, ROS, assessment and treatment plan per primary provider in the Main ED. 23 yo female here for eval of headache, dizziness, brain fog, and nausea without vomiting following head strike last night. reports lying on the ground outside when her 50-60 pound dog ran at her full speed and head butted her. she is unsure if her head struck the concrete while she was on the ground. denies LOC. not on ac. denies neck pain. reports feeling fine until around noon today. Plan: ct oredered Medications Administered Discontinued Medications Generic Name Dose Route Start Last Admin Trade Name Fabricio PRN Reason Stop Dose Admin Ondansetron HCl 4 mg 03/29/24 17:16 03/29/24 17:49 Ondansetron Odt 4 Mg Tab.Rapdis TRANSLINGU 03/29/24 17:17 4 mg ONCE ONE Administration Medical Decision Making Medical Decision Making [facility] Narrative: Patient is a 23 year old assigned female at with no reported medical history presenting to the emergency department today with concerns of a headache. Patient's physical exam was unremarkable. Patient's CT head and c-spine showed no acute process. I explained my physical exam findings as well as all test results to the patient. I answered all questions asked by the patient. I stressed the importance of the patient taking her medication as directed (either prescribed or as the over the counter packaging recommends). I stressed the importance of the patient following up with her primary care provider. I stressed the importance of the patient returning to the emergency department immediately if her symptoms were to worsen or if she were to develop any dizziness, shortness of breath, difficulty breathing, chest pain, blurry vision, loss of vision, nausea, vomiting, abdominal pain, fever, chills, back pain, or any other complaints. Patient verbalized agreement and understanding with this treatment plan and discharge. Differential Diagnosis Differential Diagnoses: The differential diagnosis associated with the presentation includes Concussion Intracranial hemorrhage, low suspicion Tension headache Migraine Admission/Observation Consideration of admission/observation: Escalation of care including admission/observation considered Patient would have been admitted to the hospital had her work up had any findings where hospital admission was appropriate and her clinical presentation warranted hospital admission. Independent Interpretation I performed an independent interpretation of an: CT Scan Interpretation: My interpretation is in agreement with the radiologist's impression of these imaging studies. EXAMINATION: CT HEAD WITHOUT CONTRAST CLINICAL INFORMATION: Head trauma COMPARISON: Brain MRI from 2019 TECHNIQUE: Contiguous axial imaging was performed from the skull base to vertex without intravenous administration of contrast. This CT examination was performed using dose optimization techniques as appropriate, variously including the following: *Automated exposure control *Adjustment of mA and/or kV according to patient size (this includes techniques or standardized protocols for targeted exams where dose is matched to indication/reason for exam; i.e. extremities or head) *Use of iterative reconstruction technique DLP: 617 mGy-cm FINDINGS: There is no evidence for an extra-axial collection. There is no evidence for intra-or extra-axial hemorrhage. The ventricles and extra-axial CSF spaces are appropriate. Choudhary-white matter differentiation is normal. No mass, mass effect or infarct is seen. Review of bone windows is normal. No skull fracture. Sinuses mastoid air cells and middle ears are clear. CT/CT head/brain wo IV con IMPRESSION: Unremarkable exam. Dictated By: Areli Marx MD Signed By: Electronically signed by Areli Marx MD 03/29/24 4091 EXAMINATION: CT CERVICAL SPINE WITHOUT CONTRAST CLINICAL INFORMATION: Trauma COMPARISON: None available. TECHNIQUE: Axial images through the cervical spine without contrast. Sagittal and coronal reconstructions. This CT examination was performed using dose optimization techniques as appropriate, variously including the following: *Automated exposure control *Adjustment of mA and/or kV according to patient size (this includes techniques or standardized protocols for targeted exams where dose is matched to indication/reason for exam; i.e. extremities or head) *Use of iterative reconstruction technique DLP: 268 mGy-cm FINDINGS: Bone alignment is normal. No fracture or dislocation. Normal disc spaces. Normal prevertebral soft tissues. Lung apices are clear. CT/CT cervical spine wo IV con IMPRESSION: Unremarkable examination. Fleischner guidelines were followed. Dictated By: Areli Marx MD Signed By: Electronically signed by Areli Marx MD 03/29/24 9627 Radiology Impression Discussion of test interpretation with radiology: I have reviewed the radiologist's reading. Discharge Plan Discharge Clinical Impression: Concussion Patient Disposition: Home, Self-Care Instructions: Concussion (ED) Additional Instructions: Follow up with your primary care provider. Return to the emergency department immediately if your symptoms worsen or if you develop any dizziness, shortness of breath, difficulty breathing, chest pain, blurry vision, loss of vision, nausea, vomiting, abdominal pain, fever, chills, back pain, or any other complaints. Prescriptions: No Action metronidazole 500 mg tablet 500 mg PO BID 7 Days Qty: 14 0RF Rx Instructions: Take with food, Avoid alcohol and vinegar products albuterol sulfate 90 mcg/actuation HFA aerosol inhaler 2 puff inhalation Q4-6H PRN (Reason: shortness of breath or wheezing) Qty: 8.5 0RF Pulmicort Flexhaler 180 mcg/actuation aerosol powdr breath activated 2 inh inhalation BID sertraline [Zoloft] 25 mg tablet 25 mg PO DAILY Qty: 30 6RF hydroxyzine HCl 10 mg tablet 10 mg PO BEDTIME 30 Days Qty: 30 1RF cetirizine 10 mg tablet 10 mg PO DAILY PRN (Reason: allergy symptoms) 90 Days Qty: 90 1RF fluticasone propionate 50 mcg/actuation spray,suspension 1 spray intranasal DAILY Referrals: Hever Hernandez PA-C [Primary Care Provider] - Stand Alone Forms: Work/School Release Interventions: ED Discharge Assessment Last Done: 03/29/24 19:11 Discharge Date/Time: 03/29/24 19:11 Print Language: Ivorian
[2024-03-29] MEDS: Ondansetron ODT 4 MG TAB.RAPDIS TRANSLINGU (17:49)
[2024-03-29 19:06] VITALS: BP 97/62; PULSE 63; RESP 20; TEMP 37; O2SAT 98
[2024-03-29 19:11] VITALS: BP 97/62; PULSE 63; RESP 20; TEMP 37; O2SAT 98
== END 2024-03-29 19:11 | disposition home or self-care (01) ==
PROVIDERS: Emergency Provider Emergency Medicine; PCP Physician Assistant
DX: S06.0X0A Concussion without loss of consciousness, initial encounter (principal); W54.1XXA Struck by dog, initial encounter; Y93.9 Activity, unspecified; Y92.9 Unspecified place or not applicable; Y99.9 Unspecified external cause status
CPT/HCPCS: 70450; 72125; 99283; 99284

== ENCOUNTER 2024-05-03 11:49 | Outpatient (AMB) | payer OTHER, SELFPAY ==
--- NOTE | 2024-05-03 11:51 | MHC.OFFVIS ---
Intake Visit Reasons: Ultra sound follow up Fishing Captain: Fishing Captain Present Accompanied by: Mother Allergies DUST Allergy (Mild, Uncoded 05/03/24 11:51) Sneezing seasonal Allergy (Mild, Uncoded 05/03/24 11:51) Unknown Is last menstrual period known: Yes HPI Comments Details: Patient is here today for an ultrasound follow up history of ovarian cysts, AUB and pelvic pain. Her mom is present for her visit. She reports feeling frustrated due to the frequency of ovarian cyst and always being in pain. She has tried control in the past and feels her symptoms always return after stopping, she is concerned that she is always having the symptoms and wants to do further evaluation to find out the cause. She is not interested in doing control at this time. She uses [id number] medication and a heating pad for discomfort. [facility] Medical History Asthma MDD (major depressive disorder), recurrent episode, moderate Right ACL tear Surgical History History of repair of ACL Family History Family/Other Breast cancer Family/Other Breast cancer Mother Diabetes Maternal Grandfather HTN (hypertension) Maternal Aunt Breast cancer Maternal Aunt Tumor Social History Housing: House Alcohol intake: current Alcohol intake frequency: holidays/special occasions only Patient Tobacco Use Status: Never used Tobacco Tobacco use type: Cigar and Smokeless Tobacco e-Cigarette/Vaping Use: Currently Using Second Hand Smoke Exposure: No Substance Use Type: Marijuana service: No Current occupational status: employed and student Current occupation: [employer] Sexual orientation: Lesbian/Sanon/Homosexual Cognitive needs: No Hearing needs: No Vision needs: No Female Reproductive History Menstrual Age of Menarche: 13 Review of Systems Const All systems reviewed & are unremarkable except as noted in HPI and below Endo Reports no additional complaints Physical Exam Const General: cooperative, healthy appearing and no acute distress Psych Appearance: well kempt Attitude: cooperative Thought process: Normal thought process present Results Reviewed Results Reviewed: [address] [address] Ultrasound Report Signed Patient: Zenaida Brown I MR#: [id number] : 2000 Acct:[id number] Age/Sex: 23 / F ADM Date: 03/17/24 Loc: HO.US Attending Dr: Nia Lanier CNM Ordering Physician: Nia Lanier CNM Date of Service: 03/17/24 Procedure(s): US pelvic and transvaginal Accession Number(s): [id number] cc: Hever Hernandez PA-C; Nia Lanier CNM~ EXAMINATION: US PELVIS CLINICAL INFORMATION: Abnormal uterine and vaginal bleeding COMPARISON: None available. TECHNIQUE: Ultrasound of the pelvis is performed using both transabdominal and transvaginal transducers along with Doppler. Transvaginal imaging is performed due to inadequate visualization transabdominally. FINDINGS: The uterus is retroverted and measures 7.7 x 4.2 x 4.9 cm in dimension. No focal uterine lesion. Endometrial thickness is normal measuring 0.2 cm. The left ovary is normal-appearing and measures 2.4 x 2.2 x 1.5 cm. The right ovary is enlarged and measures 6 x 3.2 x 3.9 cm. There is a 4 x 3.7 x 3.3 cm physiologic right ovarian cyst with daughter cyst. No imaging follow-up recommended based on cyst size and patient age. There is a small amount of fluid in the pelvis. US/US pelvic and transvaginal IMPRESSION: Enlarged right ovary containing 4 x 3.7 x 3.3 cm physiologic cyst. Normal-appearing uterus. Normal thickness endometrium. Dictated By: Areli Marx MD Signed By: <Electronically signed by Areli Marx MD in OV> 03/17/24 1443 DD/ 1340 TD/TT: Review Specialist: INDERJIT Assessment & Plan Assessment & Plan (1) Encounter to discuss test results: Code(s): Z71.2 - Person consulting for explanation of examination or test findings (2) Abnormal uterine bleeding (AUB): Code(s): N93.9 - Abnormal uterine and vaginal bleeding, unspecified Category: Medical (3) Pelvic pain: Code(s): R10.2 - Pelvic and perineal pain Category: Medical (4) Ovarian cyst: Code(s): N83.209 - Unspecified ovarian cyst, unspecified side Category: Medical Qualifiers: Laterality: right Plan Discussed: Ultrasound findings- right 4 cm physiological cyst. Discussed various causes of pelvic pain. Consider evaluation and 2nd opinion for her symptoms. All of her questions and concerns were addressed to the best of my ability and shared decision making. She is agreeable to the plan of care and accepts a referral to [facility]. Reviewed warnings of when to call for increased pain, bleeding or other concerns. Annual exam scheduled for 08/23/2024. This note is constructed using voice recognition software. While every effort has been made to ensure accuracy, cnc milling machine operator errors may have been included. Orders: Referrals SCALLOP DREDGER Referral N83.209 - Unspecified ovarian cyst, unspecified side, N93.9 - Abnormal uterine and vaginal bleeding, unspecified, R10.2 - Pelvic and perineal pain Coding Level of Care Code Est Pt Level 3 (09666) Diagnoses Encounter to discuss test results Z71.2 Abnormal uterine bleeding (AUB) N93.9 Pelvic pain R10.2 Ovarian cyst N83.209 Laterality: right
== END 2024-05-03 12:16 | disposition home or self-care (01) ==
PROVIDERS: PCP Internal Medicine; Visit Provider Advanced Practice Midwife
DX: Z71.2 Person consulting for explanation of examination or test findings (principal); N93.9 Abnormal uterine and vaginal bleeding, unspecified; R10.2 Pelvic and perineal pain; N83.209 Unspecified ovarian cyst, unspecified side
CPT/HCPCS: 99213

== ENCOUNTER → 2024-05-03 11:49 | Outpatient (BNVA) | payer OTHER, SELFPAY | PROVIDERS: PCP Physician Assistant; Visit Provider Advanced Practice Midwife | DX: N93.9 Abnormal uterine and vaginal bleeding, unspecified (principal); N83.201 Unspecified ovarian cyst, right side; R10.2 Pelvic and perineal pain; Z71.2 Person consulting for explanation of examination or test findings | CPT/HCPCS: 99212 ==

== ENCOUNTER 2024-11-30 09:35 | Outpatient (REF) | payer OTHER, SELFPAY ==
[2024-11-30 14:43] LABS: Influenza A PCR NEGATIVE (Negative); Influenza B PCR NEGATIVE (Negative); Resp Syncy Virus RNA Qual PCR NEGATIVE (Negative); SARS COV2 PCR INHOUSE NEGATIVE (Negative)
== END 2024-11-30 09:36 | disposition home or self-care (01) ==
LOC: HO.LAB 09:35
PROVIDERS: PCP Physician Assistant; Visit Provider Physician Assistant
DX: B34.9 Viral infection, unspecified (principal); R50.9 Fever, unspecified
CPT/HCPCS: 0241U; 99212

== ENCOUNTER 2024-11-30 09:35 | Outpatient (AMB) | payer OTHER, SELFPAY ==
--- OUTSIDE RECORDS SUMMARY | 2024-11-30 10:48 | XMS_ITS | Clinical Summary ---
Author Organization [facility] 's Address [address] [place] [id number] Care Team Providers Care Fluid Power Mechanic Name Role Phone Danelle Reaves Primary Care Provider Source Comments Please note that some or all of the patient's information could have additional privacy protections. State laws allow health care providers to render certain types of treatment to minors without parental consent. Please do not assume that this information can be shared solely by obtaining just the consent of the patient's parent/guardian. Please determine if all or part of the patient's care was rendered without parent/guardian involvement. And, if so, obtain the minor's consent prior to disclosure.[facility] Allergies Active Allergy Reactions Criticality Noted Date Comments Seasonal 09/24/2021 Medications PULMICORT FLEXHALER 180 mcg/actuation inhaler 09/11/2021 Active hydrOXYzine (ATARAX) 10 MG tablet 09/17/2021 Active Active Problems Problem Noted Date Diagnosed Date Weight loss 09/18/2021 Overview (09/18/2021): Added automatically from request for surgery [id number] Family History Medical History Relation Name Comments No Known Problems Father No Known Problems Mother Relation Name Status Comments Father Mother Social History Tobacco Use Types Packs/Day Years Used Date Smoking Tobacco: Never Smokeless Tobacco: Current Other Needs Answer Date Recorded Anything else about your child you'd like help w ith? Not on file 06/18/2023 Share good news about positive changes: Not on f ile 06/18/2023 Comments No Sex and Gender Information Value Date Recorded Sex Assigned at Not on file Legal Sex Female 10:02 AM EDT Gender Identity Not on file Sexual Orientation Not on file Last Filed Vital Signs Vital Sign Reading Time Taken Comments Blood Pressure 109/94 09/24/2021 3:22 PM EST Pulse 58 09/24/2021 3:22 PM EST Temperature 36.5 ??C (97.7 ??F) 09/24/2021 3:22 PM ES T Respiratory Rate 13 09/24/2021 3:22 PM EST Oxygen Saturation 100% 09/24/2021 3:22 PM EST Inhaled Oxygen Concentration - - Weight 59.3 kg (130 lb 11.7 oz) 09/24/2021 1:35 PM EST Height 176.5 cm (5' 9.5 ) 09/24/2021 1:35 PM EST Body Mass Index 19.03 09/24/2021 1:35 PM EST Plan of Treatment Health Maintenance Due Date Last Done Comments DTaP/TDAP/TD VACCINES (1 - Tdap) 2008 ADOLESCENT HIV SCREENING 2014 COVID-19 Vaccine (2023-2 5 season) 2024 INFLUENZA (#1) 2024 NIRSEVIMAB VACCINES UNDER 8 MONTHS Aged Out No longer eligible based on patient's age to complete this topic Insurance [facility] Care Teams Fluid Power Mechanic Relationship Specialty Start Date End Date Danelle Reaves PA [address] [place] [address] [place] [address] PCP - General Physician Communications Director 07/21/21
--- OUTSIDE RECORDS SUMMARY | 2024-11-30 10:48 | XMS_ITS ---
Author Name [facility] Organization Unknown History of Medication Use Medication Directions Dispensed Refills Start Date End Date Stat PULMICORT FLEXHALER 180 mcg/actuation inhaler 09/11/2021 act charanjit Problems Problem Status Onset Date Problem Type Date of Resoluti on Source Weight loss active 2021-09-18 ProblemAct [facility]
--- NOTE | 2024-11-30 11:26 | AM.OFFWIN_ITS ---
Intake Vital Signs 11/30/24 11:36 Weight 150 lb 2 oz BP 102/60 Blood Pressure Location Rt brachial Position Sitting Pulse 74 Pulse Source Pulse Oximeter Temp 98.8 F Temp Source Oral Pulse Oximetry (%) 98 Oxygen Delivery Method Room Air Intake Visit Reasons: EP flu like symptoms [phone] Intake Note: Patient here for fever, loss of control of bowls, congestion that started Wednesday. Patient Tobacco Use Status: Never used Tobacco Allergies DUST Allergy (Mild, Uncoded 11/30/24 11:27) Sneezing seasonal Allergy (Mild, Uncoded 11/30/24 11:27) Unknown Do you need a note to return to daycare/school/sports/work: Yes HPI HPI Comments History of Present Illness Details History - The patient is a 23-year-old female pr esenting with symptoms consistent with an acute viral respiratory illness. - Onset of symptoms was three to four da ys prior, with notable gastrointestinal distress including vomiting. - Fever was initially recorded at 101.7? F, decreasing to 100?F, with cold sweats, congestion, and headaches reported. - Tylenol use reported without significa nt fever reduction. - Respiratory complaints include minor s hortness of breath; no cough noted. 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 Has inhaler at home to use if needed. - Sinus pressure is present; Flonase is used as management. Physical Exam General: Cooperative, healthy appearing, comfortable and no acute distress Orientation/consciousness: Patient oriented x3 Limitations: No limitations Head: Normal to inspection Ears: Hearing grossly normal bilaterally, external ears normal and TM's normal bilaterally Nose: Normal external nose present, Normal nares present and No nasal discharge present Face and sinus: Normal facial exam and Yes sinuses TTP Mouth: Normal oral and palatal mucosa present and moist mucous membranes Throat: Yes tonsils normal, Yes uvula midline. Posterior oropharynx erythema Eyes: Appearance normal, both eyes and all related structures Neck: Normal visual inspection Respiratory: Clear to auscultation bilaterally. Normal respiratory effort, able to speak in complete sentences, Not actively coughing, no respiratory distress, not tachypneic, no tripod positioning and no use of accessory muscles Cardiovascular: Regular rate and rhythm. Normal S1 and S2 Skin: No rashes or lesions noted Neuro: Patient oriented x3 Extremities: Normal to inspection and Yes no clubbing, cyanosis or edema [facility] Medical History Asthma MDD (major depressive disorder), recurrent episode, moderate Right ACL tear Surgical History History of repair of ACL Family History Family/Other Breast cancer Family/Other Breast cancer Mother Diabetes Maternal Grandfather HTN (hypertension) Maternal Aunt Breast cancer Maternal Aunt Tumor Social History Housing: House Alcohol intake: current Alcohol intake frequency: holidays/special occasions only Patient Tobacco Use Status: Never used Tobacco Tobacco use type: Cigar and Smokeless Tobacco e-Cigarette/Vaping Use: Currently Using Second Hand Smoke Exposure: No Substance Use Type: Marijuana service: No Current occupational status: employed and student Current occupation: [employer] Sexual orientation: Lesbian/Sanon/Homosexual Cognitive needs: No Hearing needs: No Vision needs: No Female Reproductive History Menstrual Age of Menarche: 13 Review of Systems Const All systems reviewed & are unremarkable except as noted in HPI and below Physical Exam Vital Signs: Last Vital Signs Temp 98.8 F 11/30/24 11:36 Pulse 74 11/30/24 11:36 BP 102/60 11/30/24 11:36 Pulse Ox 98 11/30/24 11:36 Oxygen Delivery Method Room Air 11/30/24 11:36 Assessment & Plan Assessment & Plan (1) Acute viral syndrome: Code(s): B34.9 - Viral infection, unspecified Plan: Testing for influenza, COVID-19, and RSV has been initiated, with samples dispatched for laboratory analysis. For symptom management, the patient is advised to alternate Tylenol and ibuprofen to address fever, prioritizing hydration and rest to aid recovery and potentially avoid Tamiflu due to its gastrointestinal side effects. Pending the results, if influenza is confirmed, pt declined Tamiflu. The patient will be notified of test outcomes through the patient portal or follow-up call. Supportive measures and a work absence note have also been provided, covering the current and following day. Patient was informed and verbally consented to the use of an ambient scribe for clinic note documentation during this visit Orders: Orders SARS-CoV2/FLU/RSV Today B34.9 - Viral infection, unspecified Coding Level of Care Code Est Pt Level 3 (41830) Diagnoses Acute viral syndrome B34.9
[2024-11-30 11:36] VITALS: BP 102/60; PULSE 74; TEMP 37.1; O2SAT 98
== END 2024-11-30 12:03 | disposition home or self-care (01) ==
PROVIDERS: PCP Physician Assistant; Visit Provider Physician Assistant
DX: B34.9 Viral infection, unspecified (principal)

== ENCOUNTER 2025-04-03 14:37 | Outpatient (AMB) | payer OTHER, SELFPAY ==
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
[2025-04-03 14:49] VITALS: BP 112/62; PULSE 84; TEMP 36.4; O2SAT 98; BMI 22.6
--- OUTSIDE RECORDS SUMMARY | 2025-04-03 15:42 | XMS_ITS ---
Author Name [facility] Organization Unknown History of Medication Use Medication Directions Dispensed Refills Start Date End Date Stat us PULMICORT FLEXHALER 180 mcg/actuation inhaler 09/11/2021 act charanjit Problems Problem Status Onset Date Problem Type Date of Resoluti on Source Weight loss active 2021-09-18 ProblemAct [facility] Encounters Encounter Type Encounter Reason Primary Diagnosis Location Date Ambulatory [facility] 09/18/2021 Care Team Organization Name Specialty Phone Email Start Date End Da te [facility] Manoj Reaves Primary [facility] 09/19/2021 05/22/2024
--- OUTSIDE RECORDS SUMMARY | 2025-04-03 15:42 | XMS_ITS | Clinical Summary ---
Author Organization [facility] 's Address [address] [place] [id number] Care Team Providers Care Edi Consultant Name Role Phone Danelle Reaves Primary Care Provider [phone] Source Comments Please note that some or [...] so, obtain the minor's consent prior to disclosure.[facility] Allergies Active Allergy Reactions Criticality Noted Date Comments Seasonal 09/24/2021 Medications PULMICORT FLEXHALER 180 mcg/actuation inhaler 09/11/2021 Active hydrOXYzine (ATARAX) 10 MG tablet 09/17/2021 Active Active Problems Problem Noted Date Diagnosed Date Weight loss 09/18/2021 Overview (09/18/2021): Added automatically from request for surgery [id number] Family History Medical History Relation Name Comments [...] 59 09/24/2021 3:22 PM EST Temperature 36.5 C (97.7 F) 09/24/2021 3:22 PM EST Respiratory Rate 13 09/24/2021 3:22 PM EST [...] COVID-19 Vaccine (2023-2 5 season) 2024 INFLUENZA (Season Ended) 2025 NIRSEVIMAB VACCINES UNDER 8 MONTHS Aged Out No longer eligible based on patient's age to complete this topic Insurance [facility] [employer] Care Teams Edi Consultant Relationship Specialty Start Date End Date Danelle Reaves PA [address] [place] [address] [place] [address] PCP - General Physician [employer] Technician 07/21/21
== END 2025-04-03 15:21 | disposition home or self-care (01) ==
LOC: HO.HMCH 14:38
PROVIDERS: PCP Physician Assistant; Visit Provider Physician Assistant
DX: Z00.00 Encounter for general adult medical examination without abnormal findings (principal); F33.1 Major depressive disorder, recurrent, moderate; F41.1 Generalized anxiety disorder; M25.311 Other instability, right shoulder; N80.9 Endometriosis, unspecified

== ENCOUNTER → 2025-04-03 14:37 | Outpatient (BNVA) | payer OTHER, SELFPAY | PROVIDERS: PCP Physician Assistant; Visit Provider Physician Assistant | DX: Z00.00 Encounter for general adult medical examination without abnormal findings (principal); J45.909 Unspecified asthma, uncomplicated; F41.1 Generalized anxiety disorder; F33.1 Major depressive disorder, recurrent, moderate; M25.311 Other instability, right shoulder; N80.9 Endometriosis, unspecified | CPT/HCPCS: 96127; 99395 ==

== ENCOUNTER 2025-04-05 10:24 | Outpatient (REF) | payer OTHER, SELFPAY ==
--- NOTE | ~2025-04-05 | XR_ITS ---
EXAMINATION: XR SHOULDER, RIGHT CLINICAL INFORMATION: M25.311 - Other instability, right shoulder COMPARISON: None available. TECHNIQUE: AP external rotation, Grashey, scapular Y, and axillary views of the right shoulder. FINDINGS: No acute cortical disruption or malalignment. No lytic or blastic lesions. No bony erosions. No subcutaneous emphysema. There is preservation of the joint spaces. XR/XR shoulder RT min 2V IMPRESSION: Normal x-ray, right shoulder. Electronically signed by: Dmitriy Cárdenas MD 04/05/2025 11:01 AM EDT
[2025-04-05 10:44] LABS: MANUAL DIFF FLAG NO
[2025-04-05 10:57] LABS: Hematocrit 38.1 % (37.0-47.0); Hemoglobin 13.0 g/dl (12.0-16.0); Imm Gran Abs Auto 0.01 X10*3/uL (0.00-0.03); Imm Gran Pct Auto 0.3 % (0.0-0.4); Lymphocytes Absolute Auto 1.4 X10*3/uL (1.2-4.9); Mean Corpuscular HGB Conc 34.1 g/dl (31.0-35.0); Mean Corpuscular Hemoglobin 31.9 pg (27.0-33.0); Mean Corpuscular Volume 93.6 fL (80.0-98.0); NRBC Abs Auto 0.000 X10*3/uL (0.0-0.012); NRBC Pct Auto 0.0 /100WBC (0.0-0.2); Platelet Count 174 X10*3/uL (160-400); Red Blood Count 4.07 X10*6/uL (4.20-5.50); White Blood Count 3.8 X10*3/uL (4.8-10.8)
[2025-04-05 11:32] LABS: Alanine Aminotransferase 18 U/L (0-31); Albumin Level 4.2 g/dL (3.5-5.0); Alkaline Phosphatase 61 U/L (39-117); Anion Gap 10 (12-20); Aspartate Amino Transferase 27 U/L (5-31); Blood Urea Nitrogen 5 mg/dL (9-16); Calcium 8.7 mg/dL (8.4-10.2); Carbon Dioxide 23 mmol/L (22-29); Chloride 107 mmol/L (96-108); Estimated Glomerular Filt Rate > 60; Potassium 4.3 mmol/L (3.3-5.1); Sodium 136 mmol/L (135-145); Total Protein 7.0 g/dL (6.5-8.0)
== END 2025-04-05 10:25 | disposition home or self-care (01) ==
LOC: HO.LAB 10:24
PROVIDERS: PCP Physician Assistant; Visit Provider Physician Assistant
DX: Z13.1 Encounter for screening for diabetes mellitus (principal); M25.311 Other instability, right shoulder
CPT/HCPCS: 36415; 73030; 80053; 85025

== ENCOUNTER → 2025-04-05 10:45 | Outpatient (BNV) | payer OTHER, SELFPAY | PROVIDERS: PCP Physician Assistant; Visit Provider Radiology Diagnostic Radiology | DX: M25.311 Other instability, right shoulder (principal) | CPT/HCPCS: 73030 ==

== ENCOUNTER → 2025-04-30 19:44 | Outpatient (BNV) | payer OTHER, SELFPAY | PROVIDERS: PCP Physician Assistant; Visit Provider Radiology Diagnostic Radiology | DX: M25.311 Other instability, right shoulder (principal) | CPT/HCPCS: 73221 ==

== ENCOUNTER 2025-04-30 19:45 | Outpatient (REF) | payer OTHER, SELFPAY ==
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
== END 2025-04-30 19:46 | disposition home or self-care (01) ==
LOC: HO.MRI 19:45
PROVIDERS: PCP Physician Assistant; Visit Provider Physician Assistant
DX: M25.311 Other instability, right shoulder (principal)
CPT/HCPCS: 73221

== ENCOUNTER 2025-05-03 12:59 | Outpatient (REF) | payer OTHER, SELFPAY | END 2025-05-03 13:00 | disposition home or self-care (01) | LOC: HO.LNP 12:59 | PROVIDERS: PCP Physician Assistant; Visit Provider Advanced Practice Midwife | DX: Z01.419 Encounter for gynecological examination (general) (routine) without abnormal findings (principal); Z11.3 Encounter for screening for infections with a predominantly sexual mode of transmission; Z11.8 Encounter for screening for other infectious and parasitic diseases | CPT/HCPCS: 81515; 87491; 87591; 99395 ==

== ENCOUNTER 2025-05-03 12:59 | Outpatient (AMB) | payer OTHER, SELFPAY ==
[2025-05-03 13:03] VITALS: BP 100/62; BMI 23.0
--- NOTE | 2025-05-03 13:03 | A.OFFVIS_ITS ---
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 Did did have exploratory surgery at [facility] was told she had endometriosis done about 6 months ago Information Interpreted: non-clinical & clinical Aerial Sprayer: Aerial Sprayer Present (Oriana) Accompanied by: Self / Same As Patient Allergies DUST Allergy (Mild, Uncoded 05/03/25 13:07) Sneezing seasonal Allergy (Mild, Uncoded 05/03/25 13:07) Unknown Medication List - Last Reconciled 05/03/25 by Tasia Pereira LPN albuterol sulfate 90 mcg/actuation 2 puffs inhalation Q4-6H PRN budesonide 180 mcg/actuation (Pulmicort Flexhaler) 2 inhalations inhalation BID cetirizine 10 mg PO DAILY PRN 90 days fluticasone propionate 50 mcg/actuation 1 spray intranasal DAILY hydroxyzine HCl 10 mg PO BEDTIME 30 days medroxyprogesterone 150 mg IM [id number] sertraline 50 mg PO DAILY 90 days tretinoin 0.025% appl topical HPI Comments Details: Patient is a premenopausal woman presenting for annual examination. Director Of Assessing concerns: None. Doing well on Depo-Provera. Disclosed today she has been giving her own depo injections. She denies any contraindications to control such as: migraines with aura, history of DVT or pulmonary emboli, high blood pressure, liver disease, thrombolic disorders, Lupus, +OSMANI, breast cancer, or smoking. Currently is sexually active, same technician terminal and repeater partner. She denies vaginal itching or irritation. STI screening offered; she accepts, declines bled work. She tries to eat healthy and stays active with exercise-is on a kickball team. Denies family history of breast, ovarian or colon cancer. Last pap smear 2022, negative. [facility] Medical History Asthma MDD (major depressive disorder), recurrent episode, moderate Right ACL tear Surgical History History of repair of ACL Family History Family/Other Breast cancer Family/Other Breast cancer Mother Diabetes Maternal Grandfather HTN (hypertension) Maternal Aunt Breast cancer Maternal Aunt Tumor Social History (Updated 05/03/25 @ 13:35 by Nia Lanier CNM) Housing: House Alcohol intake: current Alcohol intake frequency: holidays/special occasions only Patient Tobacco Use Status: Never used Tobacco Tobacco use type: Cigar and Smokeless Tobacco e-Cigarette/Vaping Use: Currently Using Second Hand Smoke Exposure: No Substance Use Type: Marijuana service: No Current occupational status: employed and student 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 Sexual orientation: Lesbian/Sanon/Homosexual Cognitive needs: No Hearing needs: No Vision needs: No Female Reproductive History Menstrual Age of Menarche: 13 control method: progesterone injection (next depo provera injection 05/31/25) Total pregnancies: 0 Date of last pap smear: 08/12/23 History of abnormal pap smear: No History of STI: No Review of Systems Const All systems reviewed & are unremarkable except as noted in HPI and below Reports as per HPI Eyes Reports no additional complaints ENT Reports no additional complaints Card Reports no additional complaints Resp Reports no additional complaints GI Reports as per HPI and Reports no additional complaints Reports as per HPI Musc Reports no additional complaints Skin/Breast Reports as per HPI Neuro Reports no additional complaints Psych Reports no additional complaints Endo Reports no additional complaints Haider/Lymph Reports no additional complaints Aller/Immun Reports no additional complaints Physical Exam Vital Signs: Last Vital Signs BP 100/62 05/03/25 13:03 BMI result Body Mass Index 23.0 Const General: cooperative, healthy appearing, no acute distress, well developed and alert Orientation/consciousness: patient oriented x3 HEENT Head: Yes normal to inspection Eyes General: appearance normal, both eyes and all related structures Neck Neck: Yes normal visual inspection Thyroid: Thyroid normal Chest Chest palpation & inspection: normal inspection of the chest and other (no puckering, dimpling, peau de orange, retraction, discharge, masses) Breast/axilla inspection: normal inspection of the breasts Breast/axilla palpation: normal palpation of the breasts Resp Effort & Inspection: normal respiratory effort GI Inspection: Yes normal to inspection Palpation (GI): Soft to palpation Rectal Exam - Female: deferred General: Yes bladder normal to palpation External Female Exam: normal external appearance and normal appearance of the urethra Speculum Exam - Vagina: normal appearance of the vagina, normal palpation and normal vaginal discharge Speculum Exam - Cervix: normal appearance of the cervix and normal palpation Bimanual exam- vagina & uterus: normal bimanual exam, normal palpation, uterine size normal, bladder normal to palpation, normal palpation and non-tender Bimanual Exam- Adnexa, other: no masses Skin General skin exam: no rashes or lesions noted Rashes: no rashes Neuro General: patient oriented x3 Cognition (Neuro): normal cognition Extrem General: Yes normal to inspection Psych Attitude: cooperative Thought process: Normal thought process present Assessment & Plan Assessment & Plan (1) Encounter for well woman exam with routine gynecological exam: Code(s): Z01.419 - Encounter for gynecological examination (general) (routine) without abnormal findings Category: Medical Plan Discussed: Current recommendations for pap smears per ASCCP guidelines. Breast awareness and periodic breast exams. Advised in office Depo-Provera only per hospital policy, new prescription sent to the [facility] pharmacy. Patient will be scheduled in office. Continue with Depo-Provera. control hormone use warnings: go to ER if and loss of vision, blindness, severe headache, chest pain or difficulty breathing, severe abdominal pain, or any pain or swelling in an extremity. Maintain a healthy lifestyle including a well balanced diet and routine exerci se. Patient verbalizes understanding and agrees to the plan of care. She was given opportunity to ask questions and all questions were answered to the best of my ability. RTO in one year for annual wrecking mechanic examination. This note is constructed using voice recognition software. While every effort has been made to ensure accuracy, cancer genetics assistant errors may have been included. Orders: Orders CT NG by PCR Vag/Cerv Today Z11.3 - Encounter for screening for infections with a predominantly sexual mode of transmission Bacterial Vaginosis Panel Today Z11.3 - Encounter for screening for infections with a predominantly sexual mode of transmission Medications: New medroxyprogesterone (Depo-Provera) 150 mg IM [id number] 1 mL 4RF 90 days Coding Level of Care Code Est Pt Prev Care 18-39y(34672) Diagnoses Encounter for well woman exam with routine gynecological exam Z01.419
--- OUTSIDE RECORDS SUMMARY | 2025-05-03 13:09 | XMS_ITS | Clinical Summary ---
Author Organization [facility] Address [address] [place] [id number] Phone Care Team Providers Care Jet Operator Name Role Phone Hever Hernandez Primary Care Provider + Allergies Active Allergy Reactions Criticality Noted Date Comments Pollen Extracts 09/24/2021 Medications hydrOXYzine HCL (ATARAX) 10 MG tablet take 1 tablet by mouth everyday at bedtime 4 Active cetirizine (ZYRTEC) 10 MG tablet TAKE 1 TABLET ORALLY DAILY NEEDED FOR ALLERGY SYMPTOMS FOR 90 DAYS 4 Active sertraline (ZOLOFT) 25 MG tablet Take 1 tablet by mouth every morning. 4 Active tretinoin (RETIN-A) 0.025 % cream APPLY A THIN LAYER TO THE CHEST AND BACK NIGHTLY. 4 Active albuterol 90 mcg/actuation inhaler Inhale 2 puffs into the lungs every 6 (six) hours as needed for wheezing. Active ibuprofen (ADVIL,MOTRIN) 200 MG tablet Take 200 mg by mouth every 6 (six) hours as needed for pain (specific location in comments). Active ibuprofen (ADVIL,MOTRIN) 200 MG tablet Take 3 tablets (600 mg total) by mouth every 6 (six) hours as needed for pain (specific location in comments). 4 Active medroxyPROGESTER one (DEPO-PROVERA) 150 mg/mL Syrg IM injection syringeIndicatio ns:Endometriosis determined by laparoscopy Inject 1 mL (150 mg total) into the muscle every 3 (three) months. 4 mL 5 11/15/19 Active Hospital, Clinic, or Other Facility Administered Medication Ordered Dose Route Frequency Start Date End Date Status medroxyPROGESTERone (DEPO-PROVERA) IM injection 150 mgIndications:Endometr iosis determined by laparoscopy 150 mg IM Every 3 months 11/15/2024 08/12/2025 Active Active Problems Problem Noted Date Diagnosed Date Endometriosis determined by laparoscopy 08/29/20 Assessment & Plan (08/29/2024 4:02 PM EST): Findings during laparoscopy reviewed Incision sites clean/dry/intact, well-healed Medication management options for endometriosis reviewed Patient reports symptoms well-controlled while on Depo Provera, patient has not been on Depo in over 1 year Plan to resume Depo today, follow up in 3 months at annual exam UPT negative, injection given today Chronic pelvic pain in female 06/12/2024 Assessment & Plan (06/14/2024 6:50 PM EDT): Patient with chronic pelvic pain and ovarian cysts Previously controlled on oral contraceptives, patient has discontinued as she wants to investigate the root cause of her pelvic pain Reviewed with patient that the fact that her pain was controlled while on hormonal contraception suggests the root cause is related to ovulation/possible endometriosis Patient offered diagnostic laparoscopy, R/B/A reviewed. Patient agrees to plan or care. Case request submitted. Encounters Date Type Department Care Team Description 02/27/2025 Telephone [facility] [address] [place] [address] Referring, Not Required depo shot from Last 3 Months Family History Medical History Relation Comments Ovarian cancer Maternal Aunt 1 Ovarian cancer Maternal Aunt 2 Fibroids Mother Ovarian cysts Mother Relation Status Comments Maternal Aunt 1 Alive Maternal Aunt 2 Mother Alive Social History Tobacco Use Types Packs/Day Years Used Date Smoking Tobacco: Some Days Cigarettes Smokeless Tobacco: Never Tobacco Cessation:Ready to Q uit: Not Asked; Counseling Given: Not Answered Comments:Social smoker Alcohol Use Standard Drinks/Week Comments Not Currently 0 (1 standard drink = 0.6 oz pur e alcohol) once a month Education Answer Date Recorded Are you interested in more education? Not on atul e 06/09/2024 Are you concerned about learning? Not on file 06/09/2024 No 06/09/2024 No 06/09/2024 Digital Access Answer Date Recorded No 06/09/2024 No 06/09/2024 Reliable internet access at home? Not on file 06/09/2024 Device with a working camera? Not on file Intimate Partner Violence Answer Date R ecorded Are you denied basic needs s uch as food, clothing, or medical care? No 08/15/2024 In the past 12 months have y ou been in a relationship with a person who hurts, threatens, or tries to control you? No 08/15/2024 Are you denied basic needs s uch as food, clothing, or medical care? No 08/15/2024 In the past 12 months have y ou been in a relationship with a person who hurts, threatens, or tries to control you? No 08/15/2024 Comments No Sex and Gender Information Value Date Recorded Sex Assigned at Not on file Legal Sex Female 1:50 PM EDT Gender Identity Not on file Sexual Orientation Not on file Last Filed Vital Signs Vital Sign Reading Time Taken Comments Blood Pressure 100/64 11/15/2024 4:15 PM EST Pulse 52 08/15/2024 9:52 AM EST Temperature 36.4 C (97.5 F) 08/15/2024 8:33 AM EST Respiratory Rate 16 08/15/2024 9:52 AM EST Oxygen Saturation 99% 08/15/2024 9:52 AM EST Inhaled Oxygen Concentration - - Weight 67 kg (147 lb 9.6 oz) 11/15/2024 4:15 PM EST Height 177.8 cm (5' 10 ) 08/29/2024 8:41 AM EST Body Mass Index 21.18 08/29/2024 8:41 AM EST Plan of Treatment Health Maintenance Due Date Last Done Comments DEPRESSION SCREENING 2013 HPV VACCINES (2 - 3-dose series) 02/02/2017 01/05/2017 CHLAMYDIA SCREENING 2017 HEPATITIS C SCREENING 12/08/2019 HIV ONE-TIME SCREENING (18-6 5 YEARS) 12/08/2019 MENINGOCOCCAL VACCINES (B) ( 2 of 2 - Trumenba SCDM 2-dose series) 11/09/2021 05/09/2021 PAP SMEAR 2022 COVID-19 VACCINE (3 - 2023-2 5 season) 2024 02/01/2021, 01/11/2021 SMOKING Hx and SMOKELESS TOBACCO SCREENING 08/29/2025 08/29/2024 Adult Td,Tdap Booster 01/10/2034 01/11/2024 MENINGOCOCCAL VACCINES (ACWY) Completed 01/07/2018 PNEUMOCOCCAL VACCINES (0-49 years) Completed 01/11/2024 HEPATITIS A VACCINES Aged Out No long er eligible based on patient's age to complete this topic HIB VACCINES Aged Out No longer eligi ble based on patient's age to complete this topic Medical Devices Not on file [facility] [employer] [facility] N[facility] CONNECTORCARE [employer] NON NSPG PCP SILVER CLARITY CONNECTORCARE [employer] NON NSPG PCP SILVER CLARITY CONNECTORCARE [employer] NON NSPG PCP SILVER CLARITY CONNECTORCARE [employer] NON NSPG PCP [employer] CL[employer] CONNECTORCARE Care Teams Jet Operator Relationship Specialty Start Date End Date Hever Hernandez PA [address] [place] [id number] PCP - General Physician Floor Associate 08/02/24 Additional Source Comments The information contained in this document represents components of the legal health record. It is not the complete legal health record.[facility]
== END 2025-05-03 13:44 | disposition home or self-care (01) ==
LOC: HO.HWS 13:00
PROVIDERS: PCP Physician Assistant; Visit Provider Advanced Practice Midwife
DX: Z01.419 Encounter for gynecological examination (general) (routine) without abnormal findings (principal)
CPT/HCPCS: 99395; 99459

== ENCOUNTER 2025-05-03 13:42 | Outpatient (REF) | payer OTHER, SELFPAY ==
[2025-05-03 17:11] LABS: Bacterial Vaginosis PCR POSITIVE (Negative); Candida Group PCR NOT DETECTED (Not Detect); Candida glab krusei PCR NOT DETECTED (Not Detect); Trichomonas vaginalis PCR NOT DETECTED (Not Detect)
[2025-05-03 17:43] LABS: CT PCR NOT DETECTED (Not Detect.); NG PCR NOT DETECTED (Not Detect.)
== END 2025-05-03 13:43 | disposition home or self-care (01) ==
LOC: HO.LAB 13:42
PROVIDERS: Visit Provider Advanced Practice Midwife
DX: Z13.89 Encounter for screening for other disorder (principal)
CPT/HCPCS: 81515; 87491; 87591

== ENCOUNTER 2025-06-13 08:30 | Outpatient (REF) | payer OTHER, SELFPAY ==
[2025-06-13 11:51] LABS: Chlamydia pneumoniae PCR Not Detected (Not Detect.); Coronavirus 229E PCR Not Detected (Not Detect.); Coronavirus HKU1 PCR Not Detected (Not Detect.); Coronavirus NL63 PCR Not Detected (Not Detect.); Coronavirus OC43 PCR Not Detected (Not Detect.); RSV PCR Not Detected (Not Detect.); Rhino/Enterovirus PCR Detected (Not Detect.)
[2025-06-13 11:53] LABS: Influenza A H1 PCR Not Detected (Not Detect.); Influenza A H1-2009 PCR Not Detected (Not Detect.); Influenza A H3 PCR Not Detected (Not Detect.); SARS-CoV-2 PCR Not Detected (Not Detect.)
== END 2025-06-13 08:31 | disposition home or self-care (01) ==
LOC: HO.LAB 08:30
PROVIDERS: PCP Physician Assistant; Visit Provider Physician Assistant
DX: J06.9 Acute upper respiratory infection, unspecified (principal)
CPT/HCPCS: 87633; 99212

== ENCOUNTER 2025-06-13 08:30 | Outpatient (AMB) | payer OTHER, SELFPAY ==
[2025-06-13 08:46] VITALS: BP 100/62; PULSE 98; TEMP 37.2; O2SAT 99; BMI 23.7
--- NOTE | 2025-06-13 08:46 | MHC.OFFWIV ---
Intake Vital Signs 06/13/25 08:46 Height 5 ft 10 in Weight 165 lb BMI 23.7 BP 100/62 Blood Pressure Location Rt brachial Position Sitting Pulse 98 Pulse Source Pulse Oximeter Temp 99.0 F Temp Source Oral Pulse Oximetry (%) 99 Oxygen Delivery Method Room Air Intake Visit Reasons: EP-sinus infection Intake Note: pt presents with sinus pressure & congestion, headache, fever, productive cough approx 2-3 days. reports h/o covid lung Patient Tobacco Use Status: Never used Tobacco Allergies DUST Allergy (Mild, Uncoded 05/03/25 13:07) Sneezing seasonal Allergy (Mild, Uncoded 05/03/25 13:07) Unknown Do you need a note to return to daycare/school/sports/work: Yes HPI HPI Comments History of Present Illness Details History - The patient is a 24-year-old female presenting with worsening respiratory symptoms and sinus congestion x3 days. - History of asthma: Diagnosed at age 18-19, currently managed with pulmicort and albuterol inhalers but hasn't used inhaler since she has been sick - Admits to fevers with tmax 102F, shortness of breath and sinus pain. Denies ear pain, headaches or fatigue. - With ibuprofen and tylenol used for relief over the past three days. Physical Exam General: Cooperative, healthy appearing, comfortable and no acute distress Orientation/consciousness: Patient oriented x3 Limitations: No limitations Head: Normal to inspection Ears: Hearing grossly normal bilaterally, external ears normal and TM's normal bilaterally Nose: Normal external nose present, Normal nares present and No nasal discharge present Face and sinus: Normal facial exam and Yes sinuses nontender Mouth: Normal oral and palatal mucosa present and moist mucous membranes Throat: Yes tonsils normal, Yes uvula midline. Posterior oropharynx erythema, no exudates Eyes: Appearance normal, both eyes and all related structures Neck: Normal visual inspection, full ROM Respiratory: Clear to auscultation bilaterally. Normal respiratory effort, able to speak in complete sentences, Actively coughing, no respiratory distress, not tachypneic, no tripod positioning and no use of accessory muscles Cardiovascular: Regular rate and rhythm. Normal S1 and S2 Skin: No rashes or lesions noted Neuro: Patient oriented x3 Extremities: Normal to inspection and Yes no clubbing, cyanosis or edema [facility] Medical History Asthma MDD (major depressive disorder), recurrent episode, moderate Right ACL tear Surgical History History of repair of ACL Family History Family/Other Breast cancer Family/Other Breast cancer Mother Diabetes Maternal Grandfather HTN (hypertension) Maternal Aunt Breast cancer Maternal Aunt Tumor Social History Housing: House Alcohol intake: current Alcohol intake frequency: holidays/special occasions only Patient Tobacco Use Status: Never used Tobacco Tobacco use type: Cigar and Smokeless Tobacco e-Cigarette/Vaping Use: Currently Using Second Hand Smoke Exposure: No Substance Use Type: Marijuana service: No Current occupational status: employed and student 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 Sexual orientation: Lesbian/Sanon/Homosexual Cognitive needs: No Hearing needs: No Vision needs: No Female Reproductive History Menstrual Age of Menarche: 13 Review of Systems Const All systems reviewed & are unremarkable except as noted in HPI and below Physical Exam Vital Signs: Last Vital Signs Temp 99.0 F 06/13/25 08:46 Pulse 98 06/13/25 08:46 BP 100/62 06/13/25 08:46 Pulse Ox 99 06/13/25 08:46 Oxygen Delivery Method Room Air 06/13/25 08:46 BMI result Body Mass Index 23.7 Assessment & Plan Assessment & Plan (1) URI, acute: Code(s): J06.9 - Acute upper respiratory infection, unspecified Plan: Plan Patient was informed and verbally consented to the use of an ambient scribe for clinic note documentation during this visit. - VSS, pt well appearing and PE unremarkable - Continue Pulmicort daily and start using albuterol inhalers for sob as needed. - If albuterol inhaler does not help shortness of breath, can lease picker a six-day steroid taper which has been sent to pharmacy. - Conducted a respiratory panel to identify viral pathogens. - Use [id number] medications with caution and monitor symptoms. - Employ a neti pot with distilled water twice daily, followed by Flonase. - Increase fluid intake to assist in symptom relief. Orders: Orders Resp Pathogen Panel - [facility] Today J06.9 - Acute upper respiratory infection, unspecified Medications: New methylprednisolone PO PER PKG DIR for 6 days 21 ea 0RF Coding Level of Care Code Est Pt Level 3 (29507) Diagnoses URI, acute J06.9
--- OUTSIDE RECORDS SUMMARY | 2025-06-13 09:48 | XMS_ITS | Clinical Summary ---
Author Organization [facility] Address [address] [place] [id number] Care Team Providers Care Insecticide Maker Name Role Phone Danelle Reaves Primary Care Provider [phone] Source Comments Please note that some or [...] so, obtain the minor's consent prior to disclosure.[facility] Allergies Active Allergy Reactions Criticality Noted Date Comments Seasonal 09/24/2021 Medications PULMICORT FLEXHALER 180 mcg/actuation inhaler 09/11/2021 Active hydrOXYzine (ATARAX) 10 MG tablet 09/17/2021 Active Active Problems Problem Noted Date Diagnosed Date Weight loss 09/18/2021 Overview (09/18/2021): Added automatically from request for surgery [id number] Family History Medical History Relation Name Comments [...] patient's age to complete this topic Insurance [facility] Care Teams Insecticide Maker Relationship Specialty Start Date End Date Danelle Reaves PA [address] [place] [address] [place] [address] PCP - General Physician School Health Assistant 07/21/21
--- OUTSIDE RECORDS SUMMARY | 2025-06-13 09:48 | XMS_ITS | Encounter Summary ---
Author Organization [facility] Address [address] [place] [id number] Phone Care Team Providers Care Tourist Home Keeper Name Role Phone Hever Hernandez Primary Care Provider + Encounter Details Date Type Department Care Team ([facility] st Contact Info) Description 08/15/2024 Procedure Pass OR Admitting Dept - Virtual Department [address] [place] [address] Social History Tobacco Use Types Packs/Day Years Used Date Smoking Tobacco: Some Days Cigarettes Smokeless Tobacco: Never Comments:Social smoker Alcohol Use Standard Drinks/Week Comments Yes 0 (1 standard drink = 0.6 oz [...] on file Sexual Orientation Not on file documented as of this encounter Plan of Treatment Not on file documented as of this encounter Visit Diagnoses Not on filedocumented in this encounter Care Teams Tourist Home Keeper Relationship Specialty Start Date End Date Hever Hernandez PA [address] [place] [address] PCP - General Physician Art Therapy Certified Supervisor 08/02/24 documented as of this encounter Additional Source Comments The information contained in this document represents components of the legal health record. It is not the complete legal health record.[facility]
--- OUTSIDE RECORDS SUMMARY | 2025-06-13 09:48 | XMS_ITS | Clinical Summary ---
Author Organization [facility] Address [address] [place] [phone] Phone Care Team Providers Care Sports Broadcaster Name Role Phone Hever Hernandez Primary Care [...] to plan or care. Case request submitted. Family History Medical History Relation Comments Ovarian [...] 2-dose series) 11/09/2021 05/09/2021 PAP SMEAR 2022 INFLUENZA VACCINE (#1) 2025 COVID-19 VACCINE ( - 2024-2 6 season) 2025 02/01/2021, 01/11/2021 SMOKING Hx and SMOKELESS TOBACCO [...] topic Medical Devices Not on file Insurance [facility] NON NSPG PCP [place] [employer] CONNECTORCARE [facility] NON [place]SPG PCP [place] CONNE[employer]CARE [employer] NON NSPG PCP SILVER CLARITY CONNE[employer]CARE [employer] NON NSPG PCP S[employer] CL[employer]ITY CONNE[employer]CARE [employer] NON NSPG PCP S[employer] NON NSPG PCP [employer] Care Teams Sports Broadcaster Relationship Specialty Start Date End Date Hever Hernandez PA [address] [place] [address] PCP - General Physician Crop Or Grain Farmer 08/02/24 Additional Source Comments The information contained in this document represents components of the legal health record. It is not the complete legal health record.[facility]
== END 2025-06-13 09:23 | disposition home or self-care (01) ==
PROVIDERS: PCP Physician Assistant; Visit Provider Physician Assistant
DX: J06.9 Acute upper respiratory infection, unspecified (principal)

== ENCOUNTER 2025-06-25 08:25 | Outpatient (AMB) | payer OTHER, SELFPAY ==
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
[2025-06-25 08:30] VITALS: BMI 23.7
--- OUTSIDE RECORDS SUMMARY | 2025-06-25 09:37 | XMS_ITS | Encounter Summary ---
Author Organization [facility] Address [address] [place] [id number] Phone Care Team Providers Care Clinical Administrator Name Role Phone Hever Hernandez Primary Care Provider + Encounter Details Date Type Department Care Team ([facility] st Contact Info) Description 08/15/2024 Procedure Pass OR Admitting Dept - Virtual Department [address] [place] [address] Social History Tobacco Use Types Packs/Day Years [...] on filedocumented in this encounter Care Teams Clinical Administrator Relationship Specialty Start Date End Date Hever Hernandez PA [address] [place] [address] PCP - General Physician Tire Molder 08/02/24 documented as of this encounter Additional Source Comments The information contained in this document represents components of the legal health record. It is not the complete legal health record.[facility]
--- OUTSIDE RECORDS SUMMARY | 2025-06-25 09:37 | XMS_ITS | Clinical Summary ---
Author Organization [facility] Address [address] [place] [address] Phone Care Team Providers Care Railway Signalling Engineer Name Role Phone Hever Hernandez Primary Care [...] topic Medical Devices Not on file Insurance [facility] NON NSPG PCP [place] [employer] Member Subscriber Plan / Payer (Ef fective 2024-Present) Name:Zenaida Brown Relation to Subscriber:Child Name:BRIELLE ELLIS Date of :1900 (Home) Address: [address] [place] [address] Payer ID:[id number] Type:[employer] Address: [address] [address] [place] [address] [facility] NON NSPG PCP [place] [employer] NON NSPG PCP [place] [employer] NON NSPG PCP [place] NON NSPG PCP [employer] NON NSPG PCP [employer] Care Teams Railway Signalling Engineer Relationship Specialty Start Date End Date Hever Hernandez PA [address] [place] [address] PCP - General Physician Tool And Die Designer 08/02/24 Additional Source Comments The information contained in this document represents components of the legal health record. It is not the complete legal health record.[facility]
--- OUTSIDE RECORDS SUMMARY | 2025-06-25 09:38 | XMS_ITS | Clinical Summary ---
Author Organization [facility] Address [address] [place] [address] Care Team Providers Care Finishing Range Supervisor Name Role Phone Danelle Reaves Primary Care Provider [phone] Source Comments Please note that some or [...] (09/18/2021): Added automatically from request for surgery [id number] Family History Medical History Relation Name Comments [...] SCREENING 2014 COVID-19 Vaccine (2023-2 5 season) 2025 INFLUENZA (#1) 2025 NIRSEVIMAB VACCINES UNDER 8 MONTHS Aged Out No longer eligible based on patient's age to complete this topic Insurance [facility] Care Teams Finishing Range Supervisor Relationship Specialty Start Date End Date Danelle Reaves PA [address] [place] [address] [place] [address] PCP - General Physician Fire Engine Operator 07/21/21
== END 2025-06-25 08:54 | disposition home or self-care (01) ==
LOC: HO.HOS 08:26
PROVIDERS: PCP Physician Assistant; Visit Provider Physician Assistant
DX: S43.001A Unspecified subluxation of right shoulder joint, initial encounter (principal); M25.311 Other instability, right shoulder
CPT/HCPCS: 99203

== ENCOUNTER → 2025-06-25 08:25 | Outpatient (BNVA) | payer OTHER, SELFPAY | PROVIDERS: PCP Physician Assistant; Visit Provider Physician Assistant | DX: M25.511 Pain in right shoulder (principal); S43.001A Unspecified subluxation of right shoulder joint, initial encounter; M25.311 Other instability, right shoulder | CPT/HCPCS: 99202 ==